=== PATIENT | male | born 1960 | race African-American/Black ===

== ENCOUNTER 2019-11-10 18:47 | Inpatient (IN) | payer OTHER ==
[2019-11-10] MEDS ORDERED: hydrALAZINE 20 MG/ML VIAL SLOW IVP PRN (20:58)
[2019-11-10] MEDS ORDERED: niCARdipine 40MG In NaCl 40 MG/200 ML BAG IVPB SCH (21:15)
[2019-11-10] MEDS ORDERED: [UNRECOGNIZED DRUG - REMARK] FS PRN (21:21)
[2019-11-10] MEDS ORDERED: levETIRAcetam In NaCl (Iso-Os) 1,000 MG in Premix Bag 1 BAG IVPB SCH (22:15)
[2019-11-10 22:38] LABS: Amphetamine Not Detected (NotDetected); Barbiturates Screen Not Detected (NotDetected); Benzodiazepine Screen Not Detected (NotDetected); Cocaine Metabolite Screen Not Detected (NotDetected); Medtox Control Line Valid? VALID (VALID); Medtox Reader # READER 4; Methadone Not Detected (NotDetected); Methamphetamine Not Detected (NotDetected); Opiate Screen Not Detected (NotDetected); Oxycodone Screen Not Detected (NotDetected); Phencyclidine (PCP) Not Detected (NotDetected); THC/Cannabinoid Screen Not Detected (NotDetected); Tricyclic Screen Not Detected (NotDetected)
[2019-11-10] MEDS: Sodium Chloride 0.9% 1,000 ML IV SCH (22:53)
[2019-11-11] MEDS: Acetaminophen 325 MG TAB PO PRN ×4 (01:39→14:31)
--- NOTE | 2019-11-11 02:14 | HP ---
ADDITIONAL DICTATED FOR PHYSICIAN: Stevie Pedro MD CHIEF COMPLAINT: Altered mental status, confusion, upper extremity paresthesias. HISTORY OF PRESENT ILLNESS: Mr. Marquis is a 59-year-old male, who was transferred from [facility] to [facility] in [place] for altered mental status and upper extremity paresthesias. The patient is confused and is a poor historian, so obtaining history was difficult. Per ER report, the patient had a systolic blood pressure into the 190s over 100s and was started on a nicardipine drip. This resulted in improvement to 120s over 70s. The patient has no significant complaints of pain other than a slight headache. He also reports numbness and tingling in the fingers of his left hand. He denies any weakness in his extremities, blurred vision, nausea, vomiting, chest pain, or shortness of breath. He states that he possibly had a fall within the past few days. He is unable to provide details regarding this possible fall; however, states that perhaps he was lightheaded. Medical history is significant for hypertension and diabetes mellitus. The patient states that he takes lisinopril, metformin, and 325 mg aspirin, which he takes for pain. He denies any prior history of IN or CVA/TIA. Labs completed in the ER were within normal limits and the patient was negative for alcohol. The patient had a CT of the brain without contrast that revealed a left-sided intracranial hemorrhage with some extension into the left lateral ventricle and a posterior horn. No hydrocephalus at this time and no signs of crowding within the brain. Incidental findings of right posterior fossa arachnoid cyst with some degree of mass effect in the right cerebellum. CTA of the head with and without contrast was negative for any acute abnormalities. PHYSICAL EXAMINATION: The patient is awake and alert; however, he is confused. GCS is 14. The patient is able to correctly state his name and date of . He knows that he is in the hospital; however, he is unable to name which city he is in. He knows that today is ; however, he incorrectly states that it is November 2009. The patient is able to correctly name and identify the use of a pen. He also correctly states the definition of an island. Pupils are 2 mm and sluggishly reactive. Extraocular movements are intact. No tongue fasciculations. Cranial nerves 2 through 12 are grossly intact. The patient has excellent strength throughout all upper extremity and lower extremity myotomes. No intrinsic hand weakness. Sensation to light touch is intact and equal bilaterally. The patient has good movement of his upper and lower extremities bilaterally. Gait was not assessed. IMPRESSION/DIAGNOSES: 1. Left-sided intracranial hemorrhage with extension into the left lateral ventricle and inferior horn. 2. Right posterior fossa arachnoid cyst. 3. Hypertension. 4. History of diabetes mellitus, on metformin. 5. On 325 mg aspirin as needed for pain. PLAN: I have discussed the patient's case and imaging with Dr. Pedro. Despite the size of the left-sided intracranial hemorrhage and extension into the ventricles, there is no hydrocephalus present at this time, and overall there does not appear to be any significant crowding of the brain. No neurosurgical intervention or EVD placement is indicated at this time. Plan will be to admit patient to CCU for hourly neuro checks and continued monitoring for any neurologic changes. The patient will be n.p.o. Head of bed at 30 degrees. We will hold on aspirin and all blood thinners. We will attempt to manage blood pressure with hydralazine, lisinopril, and nicardipine drip. We have consulted our hospitalist team to help with medical management of blood pressure. Blood pressure parameters will be systolic blood pressure less than 150 and diastolic blood pressure less than 90. Plan will be to obtain repeat CT of the brain without contrast and MRI of the brain with and without contrast tomorrow morning. Should the patient have any neurologic decline overnight, we will get a stat repeat head CT or CT of the brain. The patient was updated with this plan and he voiced his understanding. Please call with any neurologic changes or other concerns. Otherwise, we will see the patient again tomorrow morning. This was a 50-minute initial patient evaluation of which greater than 50% of the time was spent in counseling. The remaining time was spent in review of records, imaging, evaluation of the patient, examination, and formulation of plan. Job ID: [id number]
[2019-11-11] MEDS: niCARdipine 50 MG in Sodium Chloride 0.9% 250 ML 230 ML IV SCH ×2 (02:53→09:03)
[2019-11-11 06:23] LABS: #Basophils 0.1 thou/uL (0.0-0.2); #Eosinphils 0.2 thou/uL (0.0-0.7); #Lymphocytes 1.8 thou/uL (1.20-3.40); #Monocytes 0.7 thou/uL (0.11-0.59); #Neutrophils 7.3 thou/uL (1.40-6.50); %Basophils 0.7 % (0.0-1.0); %Eosinophils 1.7 % (0.0-10.0); %Monocytes 6.5 % (0.0-10.0); %Neutrophils 73.3 % (42.0-75.0); Mean Corpuscular HGB CONC 34.7 g/dL (32.0-36.0); Mean Corpuscular Hemoglobin 31.2 pg (27.0-31.0); Mean Platelet Volume 6.8 fL (7.4-10.4); Platelet Count 250 thou/uL (130-400)
[2019-11-11 06:35] LABS: Anion Gap 12 mmol/L (10-20); BUN (Urea Nitrogen) 10 mg/dL (8.4-25.7); Calc. Creatinine Clearance 151 mL/min (70-130); Calcium 8.7 mg/dL (7.8-10.44); Carbon Dioxide 24 mmol/L (22-29); Chloride 108 mmol/L (98-107); Estimated GFR-MDRD Greater than 90; Glucose 138 mg/dL (70-105); Potassium 3.5 mmol/L (3.5-5.1); Sodium 140 mmol/L (136-145)
--- NOTE | 2019-11-11 06:39 | CT ---
CT OF THE BRAIN WITHOUT CONTRAST: Date: 11/11/19 COMPARISON: 11/10/19. HISTORY: Intracranial hemorrhage. TECHNIQUE: Multiple contiguous axial images were obtained in a CT of the brain without contrast. FINDINGS: There is a stable left occipitoparietal hemorrhage extending into the left lateral ventricles. The la teral ventricles are slightly more prominent. The extent of intraventricular hemorrhage is stable. Th ere is stable atrophy versus encephalomalacia in the right cerebellar hemisphere. No midline shift or downward herniation is seen. The calvarium and overlying soft tissues are unremarkable. The visualized paranasal sinuses and masto id air cells are well aerated. IMPRESSION: Stable intraventricular hemorrhage with possible slight increased prominence of the lateral ventricle s, suggesting developing hydrocephalus. POS: [facility]
[2019-11-11] MEDS ORDERED: HumaLOG 300 UNITS/3 ML VIAL SC PRN ×2 (10:26)
[2019-11-11] MEDS ORDERED: Dextrose 50% Abboject 50 ML SYRINGE SLOW IVP PRN (10:26)
[2019-11-11] MEDS ORDERED: Dextrose 5% in Water 1,000 ML IV PRN (10:26)
[2019-11-11] MEDS: Sodium Chloride 0.9% 1,000 ML IV SCH ×2 (10:27→17:37)
[2019-11-11] MEDS ORDERED: Amlodipine 5 MG TAB PO SCH (10:30)
[2019-11-11] MEDS: Labetalol HCl 100 MG/20 ML VIAL SLOW IVP PRN ×5 (11:50→23:18)
--- NOTE | 2019-11-11 12:00 | MRI ---
MRI BRAIN WITH AND WITHOUT CONTRAST: INDICATIONS: Intracerebral hematoma. Altered mental status. CORRELATION: CTA of head and CT brain from 11/10/2019 and 11/11/2019. FINDINGS: The intraparenchymal hematoma in the left parietal lobe is again noted. It measures 5.6 cm in AP dime nsion in the axial plane and is not significantly changed in size when compared to the CT of 11/11/20 19 performed at 4:45 a.m. The mild hydrocephalus is again noted. The large arachnoid cyst in the right posterior fossa is again noted, unchanged in appearance. On post contrast images there is a nidus of vascular enhancement within the mid portion of this hemat waqas. The vessels appear to arise from branches from the left anterior cerebral artery. There is also suggestion of a draining vein which drains to the superior sagittal sinus as seen on sagittal images. No other abnormal enhancement. IMPRESSION: 1. Left parietal lobe hematoma again noted, unchanged. Mild hydrocephalus is stable from CT earlier t shiv. 2. Post contrast MR images show enhancing vascular structures within the mid portion of this hematoma . These appear to represent arteries arising from the left anterior cerebral artery. There is suggest ion of a small draining venous structure. The small nidus of enhancement in the mid portion of this h ematoma is concerning for a small arteriovenous malformation, which may explain the hemorrhage. A fol low-up catheter angiogram is recommended for confirmation. Review of the CTA is made. These enhancing vascular structures from the hematoma are not apparent on the CTA, probably obscured by the density of the hematoma. POS: [facility]
--- NOTE | 2019-11-11 14:11 | PRG ---
DATE OF SERVICE: 11/11/2019 This is a 30-minute initial visit note, in which 30 minutes was spent reviewing the imaging record, evaluation, examination of the patient, and formulation of plan. Greater than 50% time was spent in counseling on Pablo Marquis. I reviewed the notes of my colleague, Nitza Lopez PA-C, and agreed with its content. SUBJECTIVE: Mr. Marquis is a 59-year-old man with hypertension. He presented with a systolic blood pressure over 200 last night and a GCS of 14 consistent with while he was alert, he was confused. He was admitted overnight. I should note he takes aspirin on occasion and has a history of diabetes and hypertension. A head CT demonstrated a large left parietal and david radiata hemorrhage. There are ventricular prominence and a large posterior fossa arachnoid cyst with a [id number] mass effect on the underlying cerebellum and brainstem; however, the fourth ventricle is open. He has again mild ventriculomegaly. We have no further imaging for comparison. CTA of the brain was negative for arterial or venous abnormality. He was admitted to the ICU. His blood pressure this morning is 137/80. His head CT is stable in my opinion. He has intraventricular blood. An MRI was performed today. There is a concern of perhaps a small AVM in the center of this lesion with potentially feeders from the distal anterior cerebral artery. The posterior fossa arachnoid cyst is an arachnoid cyst and in my opinion is likely incidental. In review of the CTA, I do not see any clear evidence of a feeding artery or draining vein, although we do need a cerebral angiogram. I do not see any clear evidence for transependymal flow. His brain does not appear to be overly tight. He does have a small area of diffusion restriction in his left basis rosa m. This is also T2 hyperintense. It is unclear what to make of this. It could be a small infarct. OBJECTIVE: On exam, he is drowsy. He has right pronator drift and moderate right upper extremity weakness. He moves his left upper extremity and bilateral lower extremities without deficit. He is confused. DISCUSSION AND PLAN: What we would like to do is allow him to be monitored over the weekend. The arachnoid cyst is incidental. I am concerned about a potential vascular abnormality inside the hematoma led to this bleed coupled with hypertension. As such, I would like to allow the hematoma to liquify and repeat a CTA early next week and to see if the hematoma once it has liquified if we can identify the underlying lesion, possible AVM. At this point, there is no need for procession to the operating room. I would like to get his blood pressure under better control. I do not think we need to place an external ventricular drain. Again, the arachnoid cyst is a congenital lesion. In regard to the hyperintensity in his rosa m on the left side and potential for left acute small pontine infarct, I would recommend we continue to monitor this and abstain from aspirin. DIAGNOSES: 1. Left parieto-occipital hematoma, possibly underlying arteriovenous malformation, CTA negative. 2. Hypertension. Job ID: [id number]
[2019-11-11] MEDS ORDERED: Lisinopril 10 MG TAB PO SCH (14:45)
[2019-11-11] MEDS: HYDROcodone/Acetaminophen 5/325 mg Tablet PO PRN ×2 (15:53→20:28)
--- NOTE | 2019-11-11 16:57 | CON ---
DATE OF CONSULTATION: PRIMARY CARE PHYSICIAN: The patient's primary care physician is out of town. He goes to the [facility]. CHIEF COMPLAINT: Altered mental status. REASON FOR ADMISSION: Intracranial hemorrhage. REASON FOR CONSULTATION: For the management of hypertension and diabetes mellitus. HISTORY OF PRESENT ILLNESS: Mr. Marquis is a pleasant 59-year-old gentleman, who was sent over from the [facility] due to acute intracranial hemorrhage. 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 He called his , who noticed that he was altered, on the phone and EMS was called. He was brought to the [facility], where he was found to have a large intracranial hemorrhage on the left side with some extension into the lateral ventricles and posterior horn. There was no evidence of hydrocephalus. No signs of crowding within the brain and he was admitted to the Neurosurgery Service. It was felt that he is currently not a surgical candidate and we have been asked to dry cleaner helper with medical management. The goal would be for his blood pressure to be below 150/90. The patient is currently awake and alert. He is oriented. He notes just some numbness in his fingertips, but he says this has been going on prior to the incident, but otherwise no complaints other than he says he still feels a bit confused. REVIEW OF SYSTEMS: All systems were reviewed and are negative except for that mentioned in the history of present illness. PAST MEDICAL HISTORY: Significant for diabetes mellitus and hypertension. PAST SURGICAL HISTORY: Negative. ALLERGIES: NO KNOWN DRUG ALLERGIES. SOCIAL HISTORY: He is , has 3 children. He is a nonsmoker, but occasionally drinks on the weekends. FAMILY HISTORY: No history of any heritable diseases. MEDICATIONS: Prior to admission included lisinopril, he is unclear of the dose, and metformin, he believes was 500 mg daily. PHYSICAL EXAMINATION: GENERAL: He is alert and oriented to person, place, and time. He is well developed and well nourished. VITAL SIGNS: Currently, blood pressure 132/80, heart rate in the 80s, respiratory rate of 16, and temperature is afebrile. HEENT: Pupils are equal, round, and reactive to light. Extraocular muscles are intact. His sclerae are anicteric. Throat, no erythema, no exudates. Uvula is midline. NECK: No adenopathy. No bruits. LUNGS: Clear to auscultation. There is no wheezing. No rales. No rhonchi. CARDIOVASCULAR: He has a normal S1-S2. There is no S3 or S4. No murmurs, clicks, or rubs. ABDOMEN: Soft, nontender, and nondistended. Positive for bowel sounds. No rebound. No guarding. No organomegaly. EXTREMITIES: There is no clubbing or cyanosis. No edema. No calf tenderness. No joint effusions. NEUROLOGIC: His cranial nerves 2 through 12 are intact. Muscle strength is 5/5 in both his upper and lower extremities. SKIN AND INTEGUMENT: No skin changes. No rash. LABORATORY DATA: White blood cell count is 10, hemoglobin 14, hematocrit is 40.5, and platelet count is 250. Sodium 140, potassium 3.5, chloride is 108, CO2 is 24, BUN of 10, creatinine 0.8, and glucose is 138. Urine drug screen is negative. IMAGING STUDIES: He had a CT scan of the brain. As previously mentioned, there was a hemorrhage in the left occipitoparietal region extending into the lateral ventricles on the left. No evidence of hydrocephalus. No midline shift or downward herniation. ASSESSMENT AND PLAN: Mr. Marquis is a pleasant 59-year-old gentleman, who suffered an intracranial hemorrhage. He is currently neurologically intact. The plan is for him to go for MRI today. 1. Hypertension. We will continue the Cardene drip. Restart lisinopril and likely add a low dose of amlodipine. Continue the labetalol and hydralazine as needed. 2. Diabetes mellitus. We will place him on a low-dose long-acting insulin for now. The MRI will be done with contrast, and therefore, we will restart metformin in 2 days, likely on Thursday. 3. The patient has been placed on seizure precaution and we will keep a close eye on his electrolytes as well. Job ID: [id number]
[2019-11-11] MEDS: Ondansetron PF 4 MG/2 ML Vial IVP PRN (19:39)
[2019-11-11] MEDS: hydrALAZINE 20 MG/ML VIAL SLOW IVP PRN (22:36)
[2019-11-12] MEDS: hydrALAZINE 20 MG/ML VIAL SLOW IVP PRN (00:42)
[2019-11-12] MEDS: HYDROcodone/Acetaminophen 5/325 mg Tablet PO PRN ×3 (00:46→08:26)
--- NOTE | 2019-11-12 01:58 | CON ---
DATE OF CONSULTATION: HISTORY OF PRESENT ILLNESS: Pablo Marquis is a pleasant 59-year-old male. He is a little confused. His is at the bedside. He presented with a parenchymal brain hemorrhage. We were consulted because of his presence in the Critical Care Unit. His family says he has not fallen. 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 He presented with complaints of dizziness and headache apparently. PAST MEDICAL HISTORY: Remarkable for diabetes and hypertension. ALLERGIES: HE HAS NO REPORTED ALLERGIES. SOCIAL HISTORY: He is a nonsmoker. He occasionally drinks. He does not use drugs. He is and he has three children. His is at bedside. FAMILY HISTORY: Negative for lung disease in early age. MEDICATIONS: Prior to admission, he was on lisinopril and metformin. REVIEW OF SYSTEMS: Ten points otherwise negative. Again, he is confabulating a little bit, sitting at the bedside. He is in no distress. PHYSICAL EXAMINATION: VITAL SIGNS: Heart rate 75, respiratory rates in the 20s, blood pressure 115/62 , oximetry is 98%. HEENT: Pupils are equal. Sclerae are anicteric. NECK: Supple. No lymphadenopathy. LUNGS: Clear. HEART: Regular rhythm. S1, S2 are normal. ABDOMEN: Soft and nontender. EXTREMITIES: Without clubbing, cyanosis, or edema. LABORATORY DATA: White count 10.0, hemoglobin 14, platelets 250. Electrolytes are normal. Glucose 138. Drug screen was negative. IMPRESSION: Parenchymal brain hemorrhage in the left parietal area. Appears to be protecting his airway and in no distress. We will follow the other physicians caring for him. 70 minute consult with 50% of time on unit coordinating care Job ID: [id number] [facility]
[2019-11-12] MEDS: Labetalol HCl 100 MG/20 ML VIAL SLOW IVP PRN (02:05)
[2019-11-12] MEDS: Ondansetron PF 4 MG/2 ML Vial IVP PRN (02:37)
[2019-11-12] MEDS: Sodium Chloride 0.9% 1,000 ML IV SCH ×2 (08:27→23:35)
[2019-11-12] MEDS ORDERED: Lisinopril 10 MG TAB PO SCH (09:00)
[2019-11-12] MEDS ORDERED: Amlodipine 5 MG TAB PO SCH (09:00)
--- NOTE | 2019-11-12 09:15 | PRG ---
DATE OF SERVICE: 11/12/2019 I saw Pablo Marquis on our rounds today. He is resting in his ICU room as I entered. He has complained of headache to his nurse. He and I talked about some visual difficulty and slowness on the right side. Overnight, I do not see any fevers recorded among the electronic vitals. Blood pressures have been in the 120s recently, but that was after Cardene drip was restarted. On examination, there is a field cut on the right. There may be some mild neglect of the right, but there seems to be good strength on the right side of the body. CT imaging showed the parieto-occipital hemorrhage extending to the ventricular surface and up within a few millimeters of the cortex of the brain. A CT angiogram was equivocal for any vascular anomaly in the area. An MRI scan did not show significant flow voids. Mr. Marquis is neurologically stable. He is back on his Cardene drip, but if they can wean off that and have his blood pressure under reasonable control, then he can move to the floor. If not, we will keep in the in the ICU another day. We can adjust his pain medication to help control with the headache, which may make his blood pressure easier to control as well. (15 minutes total time in the ICU, at bedside, and reviewing imaging). Job ID: [id number]
[2019-11-12] MEDS: niCARdipine 50 MG in Sodium Chloride 0.9% 250 ML 230 ML IV SCH ×3 (09:30→20:05)
[2019-11-12] MEDS ORDERED: Lisinopril 20 MG TAB PO SCH (10:30)
[2019-11-12] MEDS ORDERED: metFORMIN 500 MG TAB PO SCH (10:30)
--- NOTE | 2019-11-12 14:05 | PRG ---
DATE OF SERVICE: 11/12/2019 SUBJECTIVE: Pablo Marquis is still confused. OBJECTIVE: VITAL SIGNS: Heart rate in the 70s, blood pressure 129/70, respiratory rate is in the teens, and oximetry is 95%. LUNGS: Clear. HEART: Regular rate and rhythm. ABDOMEN: Soft. EXTREMITIES: Without edema. LABORATORY DATA: There is no new lab today. IMPRESSION: Status post parenchymal brain hemorrhage, clinically stable. Blood pressure still under Cardene control. His hypertensive medications have been adjusted. Job ID: [id number]
--- NOTE | 2019-11-12 14:58 | PDOC.HOSPP ---
- Subjective Encounter Date: 11/12/19 Encounter Time: 09:30 Subjective: awake, eating yogurt, moves all extremities no nausea or headache follows verbal stimuli - Objective Vital Signs & Weight: Vital Signs (12 hours) Temp Pulse BP Pulse Ox 11/12/19 12:00 97.6 F 11/12/19 10:34 126/62 11/12/19 08:26 126/57 L 11/12/19 08:25 73 126/57 L 11/12/19 08:00 98.5 F 95 11/12/19 04:00 97.7 F Weight Weight 236 lb 8.896 oz Most Recent Monitor Data Heart Rate from ECG 65 NIBP 137/64 NIBP BP-Mean 88 Respiration from ECG 20 SpO2 98 I&O: 11/11/19 11/12/19 11/13/19 06:59 06:59 06:59 Intake Total 627 2550.9 100 Output Total 750 2060 200 Balance -123 490.9 -100 Result Diagrams: 11/11/19 05:51 11/11/19 05:51 Additional Labs: Accuchecks 11/12/19 11/12/19 11/11/19 09:17 06:19 21:00 POC Glucose 122 H 121 H 113 H Hospitalist ROS - Medication Medications: Active Medications Generic Name Dose Route Start Last Admin Trade Name Freq PRN Reason Stop Dose Admin Acetaminophen 650 mg 11/10/19 20:44 11/11/19 14:31 Tylenol PO 650 mg Q4H PRN Administration Headache/Fever/Mild Pain (1-3) Hydrocodone Bitart/Acetaminophen 1 tab 11/11/19 15:22 11/12/19 08:26 [place] 5/325 PO 1 tab Q4H PRN Administration Headache Hydralazine HCl 10 mg 11/11/19 17:10 11/12/19 00:42 Apresoline SLOW IVP 10 mg Q15MIN PRN Administration Sbp Greater Than 140 Sodium Chloride 1,000 mls @ 75 mls/hr 11/10/19 20:45 11/12/19 08:27 Normal Saline 0.9% IV 1,000 mls .[id number] MITCHELL Administration Levetiracetam 500 mg/ Device 100 mls @ 200 mls/hr 11/11/19 09:00 11/12/19 08: 33 IVPB 100 mls BID MITCHELL Administration Nicardipine HCl 50 mg/ Sodium 250 mls @ 0 mls/hr 11/11/19 17:10 11/12/19 14: 21 Chloride IV 250 mls INF MITCHELL Administration Protocol As Directed Labetalol HCl 10 mg 11/11/19 17:10 11/12/19 02:05 Normodyne SLOW IVP 2 ml Q15MIN PRN Administration SBP greater than 140 Ondansetron HCl 4 mg 11/10/19 20:44 11/12/19 02:37 Zofran IVP 4 mg Q6H PRN Administration Nausea/Vomiting Sodium Chloride 10 ml 11/10/19 20:44 11/11/19 23:19 Flush - Normal Saline IVF 10 ml PRN PRN Administration Saline Flush - Exam General Appearance: awake alert Eye: PERRL, anicteric sclera ENT: no oropharyngeal lesions, moist mucosa Neck: supple, no JVD Heart: RRR, no murmur Respiratory: no wheezes, no rales, no ronchi Gastrointestinal: soft, non-tender, non-distended, normal bowel sounds Extremities: no cyanosis, no edema Neurological: no focal deficits, vision deficit Musculoskeletal: normal tone, no muscle wasting Hosp A/P (1) ICH (intracerebral hemorrhage) Code(s): I61.9 - NONTRAUMATIC INTRACEREBRAL HEMORRHAGE, UNSPECIFIED Status: Acute Qualifiers: Intracerebral hemorrhage etiology: nontraumatic Cerebral hemorrhage location: cerebral hemisphere, cortical portion Laterality: left Qualified Code(s): I61.1 - Nontraumatic intracerebral hemorrhage in hemisphere, cortical Plan: with intraventricular extension (2) Hypertensive emergency Code(s): I16.1 - HYPERTENSIVE EMERGENCY Status: Acute (3) Obesity (BMI 30.0-34.9) Code(s): E66.9 - OBESITY, UNSPECIFIED Status: Chronic (4) DM type 2 (diabetes mellitus, type 2) Status: Chronic Qualifiers: Diabetes mellitus intermediate insulin use: without intermediate use - Plan add lopressor 50mg bid, procardial xl 60mg may taper and dc cardene for sbp around 140's lipid profile in am continue metformin, prophylactic keppra parieto-occipital hemorrhage with intraventricular extn has large posterior fossa arachnoid cyst compressing brain stem structures, mgmt per Nsx hemostable oral solid diet, oob to chair and mobilize as tolerated when off cardene echo for lv function, ?lvh
[2019-11-12] MEDS ORDERED: NIFEdipine XL 60 MG TAB PO SCH (16:15)
[2019-11-12] MEDS ORDERED: Metoprolol Tartrate 50 MG TAB PO SCH ×2 (16:15→21:00)
[2019-11-12] MEDS: HYDROcodone/Acetaminophen 10/325 mg Tablet PO PRN (16:28)
[2019-11-13] MEDS: niCARdipine 50 MG in Sodium Chloride 0.9% 250 ML 230 ML IV SCH ×2 (00:50→05:58)
[2019-11-13 04:06] LABS: Anion Gap 15 mmol/L (10-20); BUN (Urea Nitrogen) 13 mg/dL (8.4-25.7); Calc. Creatinine Clearance 153 mL/min (70-130); Calcium 8.5 mg/dL (7.8-10.44); Carbon Dioxide 17 mmol/L (22-29); Cardiac Risk 4.3 (Less than 4.5); Chloride 109 mmol/L (98-107); Cholesterol 209 mg/dl (< 200 Desired); Estimated GFR-MDRD Greater than 90; Glucose 120 mg/dL (70-105); HDL Cholesterol 49 mg/dL (>60 Neg Risk); LDL Cholesterol, Calculated 140 mg/dL; Potassium 3.6 mmol/L (3.5-5.1); Sodium 137 mmol/L (136-145); Triglycerides 102 mg/dL (Less than 150)
[2019-11-13] MEDS: Metoprolol Tartrate 50 MG TAB PO SCH ×2 (04:19→15:35)
[2019-11-13 05:10] LABS: Eosinophils 2 % (0-10); Hemoglobin 13.7 g/dL (14.0-18.0); Lymphocytes 17 % (21-51); MDiff Complete? YES; Mean Corpuscular HGB CONC 33.4 g/dL (32.0-36.0); Mean Corpuscular Hemoglobin 30.8 pg (27.0-31.0); Mean Corpuscular Volume 92.1 fL (78.0-98.0); Monocytes 5 % (0-10); Neutrophil 75 % (42-75); Platelet Count 232 thou/uL (130-400); Platelet Morphology Comment Appears Adequate; RBC Distribution Width 11.9 % (11.5-14.5); Red Blood Cell (RBC) Count 4.45 mill/uL (4.70-6.10); White Blood Cell (WBC) Count 12.6 thou/uL (4.8-10.8)
[2019-11-13] MEDS: metFORMIN 500 MG TAB PO SCH (08:07)
[2019-11-13] MEDS: NIFEdipine XL 30 MG TAB PO SCH (08:07)
[2019-11-13] MEDS: Ondansetron PF 4 MG/2 ML Vial IVP PRN (08:07)
[2019-11-13] MEDS: Lisinopril 10 MG TAB PO SCH ×2 (08:08→21:01)
[2019-11-13] MEDS ORDERED: NIFEdipine XL 60 MG TAB PO SCH (09:00)
[2019-11-13] MEDS ORDERED: Lisinopril 20 MG TAB PO SCH (09:00)
[2019-11-13] MEDS ORDERED: Dexamethasone 4 mg/ml Vial SLOW IVP SCH (09:00)
[2019-11-13] MEDS: Pantoprazole 40 MG VIAL IVP SCH ×2 (09:35→21:01)
--- NOTE | 2019-11-13 11:14 | PRG ---
DATE OF SERVICE: 11/13/2019 I saw Mr. Marquis in the ICU this morning. He complaints of some headache and nausea this morning. He remains on a Cardene drip. I see a temperature of 99.0 degrees Fahrenheit recorded among his electronic vitals and that is the highest over the last 24 hours. His blood pressures have been in the 110s to 120s. On examination, Mr. Marquis opens his eyes. He answers questions. He moves all 4 extremities. He is little bit slower on the right than the left. The sodium today is 137. The white blood cell count is 12.6. I discussed with Mr. Marquis's care with the nurse. We are going to add one dose of Decadron to see if it helps with the nausea and headache. Also, add Protonix twice a day for GI prophylaxis. We will schedule the Zofran for the next 24 hours. Hopefully, these adjustments help him keep his medicine down that he can take his oral antihypertensives and wean off the Cardene drip. (15 minutes spent on the ICU, reviewing imaging and the results and managing care). Job ID: [id number]
[2019-11-13] MEDS: Ondansetron PF 4 MG/2 ML Vial SLOW IVP SCH ×3 (12:10→23:52)
[2019-11-13] MEDS: Sodium Chloride 0.9% 1,000 ML IV SCH (12:14)
--- NOTE | 2019-11-13 13:23 | PRG ---
DATE OF SERVICE: 11/13/2019 SUBJECTIVE: Pablo Marquis has no new complaints. He has been mildly nauseated intermittently. OBJECTIVE: VITAL SIGNS: He is afebrile. Heart rate in the 60s, blood pressure 126/62, respiratory rate is 19. LUNGS: Clear. HEART: Regular rhythm. ABDOMEN: Soft and nontender. EXTREMITIES: Without edema. LABORATORY DATA: White count 12.6, hemoglobin 13.7, platelets 232. Sodium 137, potassium 3.6, chloride 109, bicarb 17, BUN 13, creatinine 0.78. IMPRESSION: Status post brain hemorrhage. Decadron was added for nausea and headache. Job ID: [id number]
--- NOTE | 2019-11-13 13:31 | PDOC.HOSPP ---
- Subjective Encounter Date: 11/13/19 Encounter Time: 08:45 Subjective: awake, getting his echo done now no sob or specific weakness was nauseous early this am, says he feels better now - Objective Vital Signs & Weight: Vital Signs (12 hours) Temp Pulse BP BP BP BP Pulse Ox 11/13/19 12:36 123/62 122/64 133/70 11/13/19 12:00 98.1 F 11/13/19 08:08 118/57 L 11/13/19 08:07 77 118/57 L 11/13/19 08:00 96 11/13/19 07:00 97.9 F 11/13/19 04:00 98.4 F Weight Weight 245 lb 13.047 oz Most Recent Monitor Data Heart Rate from ECG 61 NIBP 125/66 NIBP BP-Mean 85 Respiration from ECG 19 SpO2 96 I&O: 11/12/19 11/13/19 11/14/19 06:59 06:59 06:59 Intake Total 2550.9 3107 0 Output Total 2060 625 0 Balance 490.9 2482 0 Result Diagrams: 11/13/19 03:34 11/13/19 03:34 Additional Labs: Accuchecks 11/13/19 11/13/19 11/12/19 12:15 06:11 21:18 POC Glucose 121 H 133 H 123 H 11/12/19 18:23 POC Glucose 117 H Hospitalist ROS - Medication Medications: Active Medications Generic Name Dose Route Start Last Admin Trade Name Jaredq PRN Reason Stop Dose Admin Acetaminophen 650 mg 11/10/19 20:44 11/11/19 14:31 Tylenol PO 650 mg Q4H PRN Administration Headache/Fever/Mild Pain (1-3) Hydrocodone Bitart/Acetaminophen 1 tab 11/11/19 15:22 11/12/19 08:26 [place] 5/325 PO 1 tab Q4H PRN Administration Headache Hydrocodone Bitart/Acetaminophen 1 tab 11/12/19 09:16 11/12/19 16:28 [place] 10/325 PO 1 tab Q4H PRN Administration Moderate Pain (4-6) Hydralazine HCl 10 mg 11/11/19 17:10 11/12/19 00:42 Apresoline SLOW IVP 10 mg Q15MIN PRN Administration Sbp Greater Than 140 Sodium Chloride 1,000 mls @ 75 mls/hr 11/10/19 20:45 11/13/19 12:14 Normal Saline 0.9% IV 1,000 mls .[id number] MITCHELL Administration Levetiracetam 500 mg/ Device 100 mls @ 200 mls/hr 11/11/19 09:00 11/13/19 08: 08 IVPB 100 mls BID MITCHELL Administration Nicardipine HCl 50 mg/ Sodium 250 mls @ 0 mls/hr 11/11/19 17:10 11/13/19 05: 58 Chloride IV 250 mls INF MITCHELL Administration Protocol As Directed Labetalol HCl 10 mg 11/11/19 17:10 11/12/19 02:05 Normodyne SLOW IVP 2 ml Q15MIN PRN Administration SBP greater than 140 Lisinopril 10 mg 11/13/19 09:00 11/13/19 08:08 Zestril PO 10 mg BID MITCHELL Administration Metformin HCl 500 mg 11/13/19 08:00 11/13/19 08:07 Glucophage PO 500 mg QAM-WM MITCHELL Administration Metoprolol Tartrate 50 mg 11/13/19 04:00 11/13/19 04:19 Lopressor PO 50 mg 0400,1600 MITCHELL Administration Nifedipine 30 mg 11/13/19 09:00 11/13/19 08:07 Procardia Xl PO 30 mg DAILY MITCHELL Administration Ondansetron HCl 4 mg 11/10/19 20:44 11/13/19 08:07 Zofran IVP 4 mg Q6H PRN Administration Nausea/Vomiting Ondansetron HCl 4 mg 11/13/19 12:00 11/13/19 12:10 Zofran SLOW IVP 11/14/19 06:01 4 mg Q6HR MITCHELL Administration Pantoprazole Sodium 40 mg 11/13/19 09:00 11/13/19 09:35 Protonix IVP 40 mg BID MITCHELL Administration Sodium Chloride 10 ml 11/10/19 20:44 11/11/19 23:19 Flush - Normal Saline IVF 10 ml PRN PRN Administration Saline Flush - Exam General Appearance: awake alert Eye: PERRL, anicteric sclera ENT: no oropharyngeal lesions, moist mucosa Neck: supple, no JVD Heart: RRR, no murmur Respiratory: no wheezes, no rales Gastrointestinal: soft, non-tender, non-distended, normal bowel sounds Extremities: no cyanosis, no edema Neurological: cranial nerve grossly intact Psychiatric: normal affect, A&O x 3 Hosp A/P (1) ICH (intracerebral hemorrhage) Code(s): I61.9 - NONTRAUMATIC INTRACEREBRAL HEMORRHAGE, UNSPECIFIED Status: Acute Qualifiers: Intracerebral hemorrhage etiology: nontraumatic Cerebral hemorrhage location: cerebral hemisphere, cortical portion Laterality: left Qualified Code(s): I61.1 - Nontraumatic intracerebral hemorrhage in hemisphere, cortical (2) Hypertensive emergency Code(s): I16.1 - HYPERTENSIVE EMERGENCY Status: Resolved (3) Obesity (BMI 30.0-34.9) Code(s): E66.9 - OBESITY, UNSPECIFIED Status: Chronic (4) DM type 2 (diabetes mellitus, type 2) Status: Chronic Qualifiers: Diabetes mellitus terminal operator insulin use: without terminal operator use - Plan on lopressor 50mg bid, procardial xl 30mg daily may taper and dc cardene for sbp around 140's continue metformin, prophylactic keppra, lipitor parieto-occipital hemorrhage with intraventricular extn has large posterior fossa arachnoid cyst compressing brain stem structures, mgmt per Nsx hemostable oral solid diet, oob to chair and mobilize as tolerated when off cardene echo for lv function, ?lvh
[2019-11-13] MEDS: Atorvastatin Calcium 40 MG TAB PO SCH (21:00)
[2019-11-14] MEDS: Sodium Chloride 0.9% 1,000 ML IV SCH ×2 (02:08→17:14)
[2019-11-14 04:22] LABS: Hemoglobin 12.5 g/dL (14.0-18.0); Lymphocytes 10 % (21-51); MDiff Complete? YES; Mean Corpuscular HGB CONC 34.4 g/dL (32.0-36.0); Mean Corpuscular Hemoglobin 31.1 pg (27.0-31.0); Mean Corpuscular Volume 90.3 fL (78.0-98.0); Mean Platelet Volume 6.9 fL (7.4-10.4); Monocytes 3 % (0-10); Neutrophil 87 % (42-75); Platelet Count 221 thou/uL (130-400); RBC Distribution Width 11.6 % (11.5-14.5); Red Blood Cell (RBC) Count 4.02 mill/uL (4.70-6.10); White Blood Cell (WBC) Count 13.9 thou/uL (4.8-10.8)
[2019-11-14 04:23] LABS: Anion Gap 10 mmol/L (10-20); BUN (Urea Nitrogen) 17 mg/dL (8.4-25.7); Calc. Creatinine Clearance 155 mL/min (70-130); Calcium 8.6 mg/dL (7.8-10.44); Carbon Dioxide 21 mmol/L (22-29); Chloride 110 mmol/L (98-107); Estimated GFR-MDRD Greater than 90; Glucose 137 mg/dL (70-105); Potassium 3.8 mmol/L (3.5-5.1); Sodium 137 mmol/L (136-145)
[2019-11-14] MEDS: Metoprolol Tartrate 50 MG TAB PO SCH ×3 (04:55→17:48)
[2019-11-14] MEDS: Ondansetron PF 4 MG/2 ML Vial SLOW IVP SCH (04:55)
--- NOTE | 2019-11-14 08:19 | CT ---
PRELIMINARY REPORT/[facility]/EMERGENCY AFTER HOURS PROCEDURE: EXAMINATION CTA Head With Intravenous Contrast. CT Head without Contrast. HISTORY CONCERN FOR AVM TECHNIQUE Axial CTA images of the head with intravenous contrast. MIP reconstructed images were created and rev iewed. Axial computed tomography images of the head/brain performed without intravenous contrast. CONTRAST With; ISOVIEW 370 MG, 100ML COMPARISON CT - CT BRAIN WO CON - 11/11/2019 04:44 AM [place] [facility] FINDINGS: CT HEAD: BRAIN: Large intraparenchymal hemorrhage within the left parieto-occipital lobe with surrounding edema and m ass-effect upon the adjacent sulci. Small amounts of intraventricular extension into the posterior ho rn of the left lateral ventricle. Hemorrhage is similar in size and appearance compared to prior CT d ated 11/11/19. Increased amount of hemorrhage layering within the posterior horn of the left lateral ventricle. Large CSF density lesion within the right posterior fossa causing mass-effect upon the right cerebell um which likely represents a large arachnoid cyst and is unchanged in appearance compared to prior. VENTRICLES: Prominence of the lateral ventricles, which are similar in appearance compared to prior. ORBITS: The orbits are unremarkable. SINUSES AND MASTOIDS: The paranasal sinuses and mastoid air cells are clear CTA HEAD: INTERNAL CAROTID ARTERIES The intracranial ICAs are patent with no significant stenosis. No occlusion. No aneurysm. ANTERIOR CEREBRAL ARTERIES No significant stenosis. No occlusion. No aneurysm. MIDDLE CEREBRAL ARTERIES No significant stenosis. No occlusion. No aneurysm. POSTERIOR CEREBRAL ARTERIES No significant stenosis. No occlusion. No aneurysm. BASILAR ARTERY No significant stenosis. No occlusion. No aneurysm. VERTEBRAL ARTERIES No significant stenosis. No occlusion. No aneurysm. OTHER: SOFT TISSUES: No acute finding. No masses or lymphadenopathy. BONES: No acute osseous abnormality. IMPRESSION: 1. Large intraparenchymal hemorrhage within the left parieto-occipital lobe with surrounding edema an d mass-effect upon the adjacent sulci. Small amounts of intraventricular extension into the posterior horn of the left lateral ventricle. Hemorrhage is similar in size and appearance compared to prior C T dated 11/11/19. 2. Increased amount of hemorrhage layering within the posterior horn of the left lateral ventricle. 3. Prominence of the lateral ventricles, which are similar in appearance compared to prior, and suspi cious for mild hydrocephalus. 4. Unremarkable CTA of the head. ELECTRONICALLY SIGNED BY: Cindy Cohen MD Nov 14, 2019 5:37:07 AM [place] [facility] This report is intended for review by the ordering physician only, in accordance of law. If you recei ve this report in error, please call [facility] at [phone]. FINAL REPORT EMERGENCY AFTER HOURS CTA HEAD WITH AND WITHOUT CONTRAST: Date: 11/14/19 Time: 0427 hours INDICATION: Intracranial hemorrhage. Patient has had prior CTA head on 11/10/19. The noncontrast CT head today again shows the intraparenchymal hematoma. There is a linear vascular m arking within this hematoma which may represent a draining venous structure. The previous MRI of the brain described enhancement within the mid portion of this hematoma suspicious for a small AVM nidus. This is not appreciated on CTA and a catheter angiogram is recommended as described on the MRI of . I am in agreement with the preliminary report. POS: [facility]
[2019-11-14] MEDS: Lisinopril 10 MG TAB PO SCH ×2 (08:38→20:52)
[2019-11-14] MEDS: metFORMIN 500 MG TAB PO SCH (08:38)
[2019-11-14] MEDS: Pantoprazole 40 MG VIAL IVP SCH ×2 (08:39→20:53)
[2019-11-14] MEDS: NIFEdipine XL 30 MG TAB PO SCH (08:39)
--- NOTE | 2019-11-14 11:10 | ULT ---
BILATERAL LOWER EXTREMITY VENOUS DUPLEX EXAM: Date: 11/14/19 Deep veins of both lower extremities evaluated with ultrasound and Doppler, with color Doppler, spect ral analysis, and compression. INDICATION: Immobilization. Left lower extremity pain and edema. FINDINGS: Deep veins of both lower extremities show normal blood flow and compression. No evidence of deep veno us thrombosis. IMPRESSION: No evidence of lower extremity deep venous thrombosis. POS: REJI
[2019-11-14] MEDS ORDERED: Haloperidol Lactate 5 MG/ML VIAL ONE (11:42)
--- NOTE | 2019-11-14 11:51 | PDOC.HOSPP ---
- Subjective Encounter Date: 11/14/19 Encounter Time: 10:15 Subjective: awake, calm now got agitated this am per staff follows verbal stimuli is moving all extremities - Objective Vital Signs & Weight: Vital Signs (12 hours) Temp Pulse Pulse Pulse BP BP BP 11/14/19 08:56 110 H 97 166/82 H 141/75 H 11/14/19 08:39 63 155/79 H 11/14/19 08:38 155/79 H 11/14/19 07:52 11/14/19 04:00 98.3 F 11/14/19 00:00 98.5 F Pulse Ox 11/14/19 08:56 11/14/19 08:39 11/14/19 08:38 11/14/19 07:52 100 11/14/19 04:00 11/14/19 00:00 Weight Weight 243 lb 9.773 oz Most Recent Monitor Data Heart Rate from ECG 64 NIBP 146/82 NIBP BP-Mean 103 Respiration from ECG 25 SpO2 94 I&O: 11/13/19 11/14/19 11/15/19 06:59 06:59 06:59 Intake Total 3107 3309 560 Output Total 625 1200 301 Balance 2482 2109 259 Result Diagrams: 11/14/19 03:38 11/14/19 03:38 Additional Labs: Accuchecks 11/14/19 11/14/19 11/13/19 11:35 06:19 21:44 POC Glucose 112 H 125 H 146 H 11/13/19 11/13/19 15:40 12:15 POC Glucose 199 H 121 H Hospitalist ROS - Medication Medications: Active Medications Generic Name Dose Route Start Last Admin Trade Name Freq PRN Reason Stop Dose Admin Acetaminophen 650 mg 11/10/19 20:44 11/11/19 14:31 Tylenol PO 650 mg Q4H PRN Administration Headache/Fever/Mild Pain (1-3) Hydrocodone Bitart/Acetaminophen 1 tab 11/11/19 15:22 11/12/19 08:26 [place] 5/325 PO 1 tab Q4H PRN Administration Headache Hydrocodone Bitart/Acetaminophen 1 tab 11/12/19 09:16 11/12/19 16:28 [place] 10/325 PO 1 tab Q4H PRN Administration Moderate Pain (4-6) Atorvastatin Calcium 40 mg 11/13/19 21:00 11/13/19 21:00 Lipitor PO 40 mg HS MITCHELL Administration Hydralazine HCl 10 mg 11/11/19 17:10 11/12/19 00:42 Apresoline SLOW IVP 10 mg Q15MIN PRN Administration Sbp Greater Than 140 Sodium Chloride 1,000 mls @ 75 mls/hr 11/10/19 20:45 11/14/19 02:08 Normal Saline 0.9% IV 1,000 mls .[id number] MITCHELL Administration Levetiracetam 500 mg/ Device 100 mls @ 200 mls/hr 11/11/19 09:00 11/14/19 08: 38 IVPB 100 mls BID MITCHELL Administration Nicardipine HCl 50 mg/ Sodium 250 mls @ 0 mls/hr 11/11/19 17:10 11/13/19 05: 58 Chloride IV 250 mls INF MITCHELL Administration Protocol As Directed Insulin Human Lispro 0 units 11/11/19 10:26 11/13/19 17:40 Humalog SC 2 units .MODERATE SLIDING SC PRN Administration Moderate Correctional Scale Labetalol HCl 10 mg 11/11/19 17:10 11/12/19 02:05 Normodyne SLOW IVP 2 ml Q15MIN PRN Administration SBP greater than 140 Lisinopril 10 mg 11/13/19 09:00 11/14/19 08:38 Zestril PO 10 mg BID MITCHELL Administration Metformin HCl 500 mg 11/13/19 08:00 11/14/19 08:38 Glucophage PO 500 mg QAM-WM MITCHELL Administration Metoprolol Tartrate 50 mg 11/13/19 04:00 11/14/19 04:55 Lopressor PO 50 mg 0400,1600 MITCHELL Administration Nifedipine 30 mg 11/13/19 09:00 11/14/19 08:39 Procardia Xl PO 30 mg DAILY MITCHELL Administration Ondansetron HCl 4 mg 11/10/19 20:44 11/13/19 08:07 Zofran IVP 4 mg Q6H PRN Administration Nausea/Vomiting Pantoprazole Sodium 40 mg 11/13/19 09:00 11/14/19 08:39 Protonix IVP 40 mg BID MITCHELL Administration Sodium Chloride 10 ml 11/10/19 20:44 11/11/19 23:19 Flush - Normal Saline IVF 10 ml PRN PRN Administration Saline Flush - Exam General Appearance: awake alert Eye: PERRL, anicteric sclera ENT: no oropharyngeal lesions, moist mucosa Neck: supple, no JVD Heart: RRR, no murmur Respiratory: no wheezes, no rales Gastrointestinal: soft, non-tender, non-distended, normal bowel sounds Extremities: no cyanosis, no edema Neurological: cranial nerve grossly intact, no focal deficits Hosp A/P (1) ICH (intracerebral hemorrhage) Code(s): I61.9 - NONTRAUMATIC INTRACEREBRAL HEMORRHAGE, UNSPECIFIED Status: Acute Qualifiers: Intracerebral hemorrhage etiology: nontraumatic Cerebral hemorrhage location: cerebral hemisphere, cortical portion Laterality: left Qualified Code(s): I61.1 - Nontraumatic intracerebral hemorrhage in hemisphere, cortical (2) Hypertensive emergency Code(s): I16.1 - HYPERTENSIVE EMERGENCY Status: Resolved (3) Obesity (BMI 30.0-34.9) Code(s): E66.9 - OBESITY, UNSPECIFIED Status: Chronic (4) DM type 2 (diabetes mellitus, type 2) Status: Chronic Qualifiers: Diabetes mellitus detention insulin use: without detention use - Plan on lopressor 50mg bid, procardial xl 30mg daily continue metformin, prophylactic keppra, lipitor parieto-occipital hemorrhage with intraventricular extn has large posterior fossa arachnoid cyst compressing brain stem structures, mgmt per Nsx hemostable oral solid diet, oob to chair and mobilize as tolerated echo shows normal ef and wall motion may use haldol prn or xanax for intermittent agitation
[2019-11-14] MEDS ORDERED: Haloperidol Lactate 5 MG/ML VIAL SLOW IVP SCH ×3 (12:00→13:45)
[2019-11-14] MEDS ORDERED: Lorazepam 2 MG/ML VIAL ONE (12:07)
[2019-11-14] MEDS ORDERED: Lorazepam 2 MG/ML VIAL SLOW IVP SCH ×2 (12:15→14:45)
[2019-11-14] MEDS: Lorazepam 2 MG/ML VIAL SLOW IVP SCH ×2 (12:23→13:01)
[2019-11-14] MEDS ORDERED: Haloperidol Lactate 5 MG/ML VIAL IVPB PRN (12:31)
--- NOTE | 2019-11-14 13:37 | PRG ---
DATE OF SERVICE: 11/14/2019 This is Ru French PA-C dictating a report for Stevie Pedro MD. This is a 50-minute subsequent patient evaluation, of which greater than 50% of the exam was spent counseling and coordinating the patient's care, remainder of the exam was spent in review of the patient's medical records and review of appropriate imaging studies. Mr. Marquis is hospital day #4, having sustained a left intraparenchymal hemorrhage. There is concern for possible AVM at this hemorrhage site. There is some extension into the ventricular system. Review of the patient's CTA as we are trying to better assess if there is the possibility of an AVM at this point is stable from Thursday. The size of the ventricles remain stable; although, there is some enlargement of the ventricles. The patient neurologically appears to be fine. According to nursing staff, however, the patient has been intermittently confused and combative. When he is calm, his blood pressure is very well controlled, in fact he has not been on Cardene, but has been on oral metoprolol as well as intermittently on some hydralazine. We need exceptional blood pressure control so as we cannot prevent the expansion of his hemorrhage. On neurological exam today, the patient is awake, alert and mostly appropriate. He is calm. He follows commands in all extremities and appears to be improving in regard to his right-sided arm and leg weakness. He is weaker in the right arm than in the right leg. His pupils are pinpoint, but appear to be symmetric. He does not appear to have any nystagmus on exam. He does have a peripheral vision deficit on the right when testing confrontation. He believes the year is 1996 and that it is Thursday, although he does understand that it is October, it is around the Jennifer time. I would like the patient to continue to work with therapies. But again, blood pressure control is paramount. We would like to transfer him out to the unit into the floor; however, again we must be sure that his blood pressures under very good control with systolic blood pressure remain less than 140 diastolic less than 90 to again ensure adequate treatment of his hemorrhage. At this time, there is no role for neurosurgical intervention, but we will continue to monitor the patient. We will plan for an MRI of the brain with and without contrast in the next 4 to 6 weeks and also formal angiogram with Dr. Bhatt in the next 4 to 6 weeks, so that we can give this hemorrhage time to liquify and have better visualization on all studies. Please call with any changes in the patient's neurologic status. Otherwise, we would hope to transfer him to the floor perhaps tomorrow as long as his blood pressure is under good control. Job ID: [id number]
--- NOTE | 2019-11-14 14:02 | PRG ---
DATE OF SERVICE: 11/14/2019 SUBJECTIVE: Pablo Marquis is intermittently combative with the nurses. In no distress. He is handling secretions. OBJECTIVE: VITAL SIGNS: Stable. Blood pressure 130/77, heart rate 65, respiratory rate in the teens LUNGS: Clear. HEART: Regular rhythm. ABDOMEN: Soft. LABORATORY DATA: White count 13.9, hemoglobin 12.5, platelets 221,000, bilateral lower extremity ultrasounds done, were negative for DVT. He had a [place] of [place] CT angio today, shows his left parieto-occipital hemorrhage , increased blood left lateral ventricle per the report. Posterior defect is felt to be a large arachnoid cyst, possible AVM was seen on the MRI Overall, he is stable. Continue to follow while he is in the Critical Care Unit. Job ID: [id number] [facility]
[2019-11-14] MEDS ORDERED: Diazepam 5 MG TAB PO PRN (14:35)
[2019-11-14] MEDS: hydrALAZINE 20 MG/ML VIAL SLOW IVP PRN ×2 (14:37→22:01)
[2019-11-14] MEDS ORDERED: Diazepam 5 MG TAB PO SCH (14:45)
[2019-11-14] MEDS ORDERED: Thiamine HCl 200 MG/2 ML VIAL IM SCH (14:45)
[2019-11-14] MEDS ORDERED: Promethazine HCl 25 MG/ML VIAL SLOW IVP SCH (14:45)
--- NOTE | 2019-11-14 15:22 | PQF ---
ZOILA NIETO MORGAN, PA -C [id number] CLINICAL DOCUMENTATION IMPROVEMENT CLARIFICATION FORM: ICD-10 Updated PLEASE DO AN ADDENDUM TO THE PROGRESS NOTE WITH ANY DOCUMENTATION UPDATES OR ADDITIONS AND CARRY THROUGH TO DC SUMMARY. THANK YOU. DATE: 11/14/19 ATTN: DEYANIRA Sofia Please exercise your independent, professional judgment in responding to the clarification form. Clinical indicators are provided on the bottom of this form for your review Please check appropriate box(s): [ ] Encephalopathy: Type: [ ] Acute [ ] Subacute [ ] Chronic Etiology: [ ] Hypertensive [ ] brain compression [ ] ICH [ ] Unspecified [ ] in the setting of underlying dementia [ ] Other (please specify) [ ] Transient Alteration of Awareness [ ] Other diagnosis [ ] Unable to determine In addition, please specify: Present on Admission (POA): [ ] Yes [ ] No [ ] Unable to determine For continuity of documentation, please document condition throughout progress notes and discharge summary. Thank You. CLINICAL INDICATORS - SIGNS / SYMPTOMS / LABS / RESULTS AND LOCATION IN EMR 11/11 Pedro: "He is confused." 11/12 Jagadeeshan: "parieto-occiptal hemorrhage with intraventricular extn. has large posterior fossa arachnoidyst compressing brain stem structures" RISK FACTORS / RESULTS AND LOCATION IN EMR 11/12 Jagadeeshan: "parieto-occiptal hemorrhage with intraventricular extn. has large posterior fossa arachnoid cyst compressing brain stem structures" 11/14 Jagadeeshan: "HTN emergency resolved" TREATMENTS / RESULTS AND LOCATION IN EMR Neuro checks Q1H 11/10 per orders Antihypertensives (IV)--> Cardene drip 11/11-11/13 per orders IV fluids--> NS at75 11/10 to date per orders IV decadron 11/13 per orders (This form is maintained as a part of the permanent medical record) 2014 [employer]. All Rights Reserved Sruthi Hamilton RN, BSN, CCDS [email or web address]
[2019-11-14] MEDS: Haloperidol Lactate 5 MG/ML VIAL IM SCH ×3 (17:03→20:52)
[2019-11-14] MEDS: niCARdipine 50 MG in Sodium Chloride 0.9% 250 ML 230 ML IV SCH ×2 (17:50→22:37)
[2019-11-14] MEDS ORDERED: Multivitamins, Adult 10 ML, Thiamine HCl 100 MG, Folic Acid 1 MG in Dextrose 5 %-0.45 %... IV SCH (18:30)
[2019-11-14 19:44] LABS: Amphetamine Not Detected (NotDetected); Barbiturates Screen Not Detected (NotDetected); Benzodiazepine Screen Detected (NotDetected); Cocaine Metabolite Screen Not Detected (NotDetected); Medtox Control Line Valid? VALID (VALID); Medtox Reader # READER 1; Methadone Not Detected (NotDetected); Methamphetamine Not Detected (NotDetected); Opiate Screen Detected (NotDetected); Oxycodone Screen Not Detected (NotDetected); Phencyclidine (PCP) Not Detected (NotDetected); THC/Cannabinoid Screen Not Detected (NotDetected); Tricyclic Screen Not Detected (NotDetected)
[2019-11-14] MEDS: Labetalol HCl 100 MG/20 ML VIAL SLOW IVP PRN (20:16)
[2019-11-14] MEDS: Atorvastatin Calcium 40 MG TAB PO SCH (20:52)
[2019-11-14] MEDS ORDERED: Nitroglycerin 2% Ointment 1 INCH/1 GM Packet TOP SCH (22:30)
[2019-11-14] MEDS ORDERED: Acetaminophen 650 MG Suppository PR PRN (22:59)
[2019-11-15] MEDS: Haloperidol Lactate 5 MG/ML VIAL IM SCH ×7 (00:21→23:20)
[2019-11-15] MEDS: niCARdipine 50 MG in Sodium Chloride 0.9% 250 ML 230 ML IV SCH ×4 (02:06→16:44)
[2019-11-15] MEDS ORDERED: Diazepam 5 MG TAB PO PRN (04:00)
[2019-11-15] MEDS: Metoprolol Tartrate 50 MG TAB PO SCH ×2 (04:15→15:47)
[2019-11-15 04:31] LABS: ALT (SGPT) 15 U/L (8-55); AST (SGOT) 19 U/L (5-34); Albumin 3.6 g/dL (3.5-5.0); Anion Gap 12 mmol/L (10-20); BUN (Urea Nitrogen) 15 mg/dL (8.4-25.7); Bilirubin, Direct 0.3 mg/dL (0.1-0.3); Bilirubin, Total 0.8 mg/dL (0.2-1.2); Calc. Creatinine Clearance 124 mL/min (70-130); Calcium 8.5 mg/dL (7.8-10.44); Carbon Dioxide 21 mmol/L (22-29); Chloride 108 mmol/L (98-107); Estimated GFR-MDRD Greater than 90; Globulin 3.1 g/dL (2.4-3.5); Glucose 157 mg/dL (70-105); Potassium 3.6 mmol/L (3.5-5.1); Protein, Total 6.7 g/dL (6.0-8.3); Sodium 137 mmol/L (136-145)
[2019-11-15 04:42] LABS: Alkaline Phosphatase 72 U/L (40-110)
[2019-11-15 05:12] LABS: Hemoglobin 12.7 g/dL (14.0-18.0); Mean Corpuscular HGB CONC 34.4 g/dL (32.0-36.0); Mean Corpuscular Hemoglobin 31.2 pg (27.0-31.0); Mean Corpuscular Volume 90.7 fL (78.0-98.0); RBC Distribution Width 11.8 % (11.5-14.5); Red Blood Cell (RBC) Count 4.09 mill/uL (4.70-6.10)
[2019-11-15] MEDS: Nitroglycerin 2% Ointment 1 INCH/1 GM Packet TOP SCH ×3 (05:46→21:03)
[2019-11-15 05:56] LABS: Band 1 % (5-11); Lymphocytes 18 % (21-51); MDiff Complete? YES; Mean Platelet Volume 7.3 fL (7.4-10.4); Monocytes 14 % (0-10); Neutrophil 66 % (42-75); Platelet Count 213 thou/uL (130-400); White Blood Cell (WBC) Count 14.5 thou/uL (4.8-10.8)
[2019-11-15 06:22] LABS: Syphilis Antibody Nonreactive (Nonreactive); Syphilis Antibody Index 0.04 S/CO (<1.00 Non-Reactive)
[2019-11-15] MEDS: Sodium Chloride 0.9% 1,000 ML IV SCH ×2 (06:27→22:20)
--- NOTE | 2019-11-15 07:53 | PRG ---
DATE OF SERVICE: 11/15/2019 I saw Mr. Marquis on rounds this morning. Yesterday, he needed some Haldol and Ativan to be more compliant and remained in the bed. He was trying to extricate himself. Overnight, he has been sleeping comfortably and he feels better this morning. I see maximum temperature recorded of 98.7 degrees Fahrenheit. His blood pressures have been between the 120s to 130s and he remains on a Cardene drip. I do not find any new deficits on examination. He has some field cut on the right side. He has a little bit slower movement on the right side of the body than the left, but he moves all extremities well. White blood cell count is 14.5. His sodium is 137. Today, we will let Mr. Marquis get to a chair. He can remain in the MEDIchair and do some aggressive physical therapy, maybe he will be tired enough to get a good night sleep again tonight. Once he is off the Cardene drip and his blood pressure is under good control, he can be moved out of the ICU. Job ID: [id number]
[2019-11-15] MEDS: metFORMIN 500 MG TAB PO SCH (08:20)
[2019-11-15] MEDS: Folic Acid 1 MG TAB PO SCH (08:21)
[2019-11-15] MEDS: Lisinopril 10 MG TAB PO SCH ×2 (08:21→20:36)
[2019-11-15] MEDS: Multivitamin W/ Minerals 1 TAB PO SCH (08:21)
[2019-11-15] MEDS: NIFEdipine XL 30 MG TAB PO SCH (08:21)
[2019-11-15] MEDS: Thiamine 100 MG TAB PO SCH (08:22)
[2019-11-15] MEDS: Magnesium Oxide 400 MG TAB PO SCH (08:22)
[2019-11-15] MEDS: Pantoprazole 40 MG VIAL IVP SCH ×2 (08:23→20:40)
[2019-11-15] MEDS: HYDROcodone/Acetaminophen 10/325 mg Tablet PO PRN ×2 (08:29→20:37)
--- NOTE | 2019-11-15 10:48 | ULT ---
BILATERAL LOWER EXTREMITY VENOUS ULTRASOUND: HISTORY: Immobility at risk for DVT. Bilateral lower extremity edema. TECHNIQUE: Multiplanar, patino scale, and color Doppler images were obtained in a bilateral lower extremity venous ultrasound. Spectral analysis of the Doppler waveforms was performed. FINDINGS: The bilateral common femoral veins, profunda femoral veins, superficial femoral veins, and popliteal veins are normal in appearance without visible thrombus. These vessels demonstrate normal compressio n, flow, and augmentation. The posterior tibial vein and the greater saphenous veins are also patent . IMPRESSION: No evidence of deep vein thrombosis. POS: [facility]
--- NOTE | 2019-11-15 11:25 | PRG ---
DATE OF SERVICE: 11/15/2019 SUBJECTIVE: Pablo Marquis is more cooperative today per the nurses. He slept last night. He had a headache this morning, which was treated with hydrocodone. OBJECTIVE: GENERAL: He is resting comfortably now. VITAL SIGNS: Blood pressure 120/63, heart rate 65, respiratory rate in the teens. HEENT: He is snoring, but he is not having obstructive apnea. LUNGS: Remarkable for coarse equal breath sounds. HEART: Regular rhythm. ABDOMEN: Soft. EXTREMITIES: Without asymmetry or edema. LABORATORY DATA: White count 14.5, hemoglobin 12.7, platelets 213. Sodium 137, potassium 3.6, chloride 108, bicarb 21, BUN 15, and creatinine 0.99. IMPRESSION: Parenchymal brain hemorrhage, clinically stable for now. Encephalopathy with his hemorrhage, clinically stable, perhaps, slightly improved. Job ID: [id number]
--- NOTE | 2019-11-15 12:53 | PDOC.HOSPP ---
- Subjective Encounter Date: 11/15/19 Encounter Time: 09:45 Subjective: slept well last night per staff tried to stand with PT this am didn't eat his breakfast currently is sleeping - Objective Vital Signs & Weight: Vital Signs (12 hours) Temp Pulse BP Pulse Ox 11/15/19 12:00 98.3 F 11/15/19 08:21 71 142/61 H 11/15/19 07:29 99 11/15/19 03:00 98.5 F Weight Weight 243 lb 9.773 oz Most Recent Monitor Data Heart Rate from ECG 65 NIBP 126/66 NIBP BP-Mean 86 Respiration from ECG 25 SpO2 94 I&O: 11/14/19 11/15/19 11/16/19 06:59 06:59 06:59 Intake Total 3309 3913.8 0 Output Total 1200 2101 350 Balance 2109 1812.8 -350 Result Diagrams: 11/15/19 03:36 11/15/19 03:36 Additional Labs: Accuchecks 11/15/19 11/15/19 11/14/19 10:59 06:02 17:13 POC Glucose 115 H 136 H 116 H Hospitalist ROS - Medication Medications: Active Medications Generic Name Dose Route Start Last Admin Trade Name Freq PRN Reason Stop Dose Admin Acetaminophen 650 mg 11/10/19 20:44 11/11/19 14:31 Tylenol PO 650 mg Q4H PRN Administration Headache/Fever/Mild Pain (1-3) Acetaminophen 650 mg 11/14/19 22:59 11/14/19 23:04 Tylenol [place] 650 mg Q6H PRN Administration .FEVER Hydrocodone Bitart/Acetaminophen 1 tab 11/11/19 15:22 11/12/19 08:26 [place] 5/325 PO 1 tab Q4H PRN Administration Headache Hydrocodone Bitart/Acetaminophen 1 tab 11/12/19 09:16 11/12/19 16:28 [place] 10/325 PO 1 tab Q4H PRN Administration Moderate Pain (4-6) Hydrocodone Bitart/Acetaminophen 2 tab 11/12/19 09:16 11/15/19 08:29 [place] 10/325 PO 2 tab Q4H PRN Administration Severe Pain (7-10) Atorvastatin Calcium 40 mg 11/13/19 21:00 11/14/19 20:52 Lipitor PO Not Given HS MITCHELL Folic Acid 1 mg 11/15/19 09:00 11/15/19 08:21 Folvite PO 1 mg DAILY MITCHELL Administration Haloperidol Lactate 5 mg 11/14/19 16:00 11/15/19 12:05 Haldol IM Not Given Q4H MITCHELL Hydralazine HCl 10 mg 11/11/19 17:10 11/14/19 22:01 Apresoline SLOW IVP 10 mg Q15MIN PRN Administration Sbp Greater Than 140 Sodium Chloride 1,000 mls @ 75 mls/hr 11/10/19 20:45 11/15/19 06:27 Normal Saline 0.9% IV 1,000 mls .[id number] MITCHELL Administration Levetiracetam 500 mg/ Device 100 mls @ 200 mls/hr 11/11/19 09:00 11/15/19 08: 22 IVPB 100 mls BID MITCHELL Administration Nicardipine HCl 50 mg/ Sodium 250 mls @ 0 mls/hr 11/11/19 17:10 11/15/19 10: 13 Chloride IV 250 mls INF MITCHELL Administration Protocol As Directed Dexmedetomidine HCl 400 mcg/ 100 mls @ 0 mls/hr 11/14/19 17:00 11/15/19 00:23 Sodium Chloride IVPB 100 mls INF MITCHELL Administration Protocol Titrate Insulin Human Lispro 0 units 11/11/19 10:26 11/13/19 17:40 Humalog SC 2 units .MODERATE SLIDING SC PRN Administration Moderate Correctional Scale Iron/Minerals/Multivitamins 1 tab 11/15/19 09:00 11/15/19 08:21 Theragran M PO 1 tab DAILY MITCHELL Administration Labetalol HCl 10 mg 11/11/19 17:10 11/14/19 20:16 Normodyne SLOW IVP 2 ml Q15MIN PRN Administration SBP greater than 140 Lisinopril 10 mg 11/13/19 09:00 11/15/19 08:21 Zestril PO 10 mg BID MITCHELL Administration Magnesium Oxide 400 mg 11/15/19 09:00 11/15/19 08:22 Magnesium Oxide PO 400 mg DAILY MITCHELL Administration Metformin HCl 500 mg 11/13/19 08:00 11/15/19 08:20 Glucophage PO 500 mg QAM-WM MITCHELL Administration Metoprolol Tartrate 50 mg 11/13/19 04:00 11/15/19 04:15 Lopressor PO 50 mg 0400,1600 MITCHELL Administration Nifedipine 30 mg 11/13/19 09:00 11/15/19 08:21 Procardia Xl PO 30 mg DAILY MITCHELL Administration Nitroglycerin 0.5 inch 11/15/19 06:00 11/15/19 05:46 Nitro-Bid 2% Ointment TOP 0.5 inch Q8HR MITCHELL Administration Ondansetron HCl 4 mg 11/10/19 20:44 11/13/19 08:07 Zofran IVP 4 mg Q6H PRN Administration Nausea/Vomiting Pantoprazole Sodium 40 mg 11/13/19 09:00 11/15/19 08:23 Protonix IVP 40 mg BID MITCHELL Administration Sodium Chloride 10 ml 11/10/19 20:44 11/11/19 23:19 Flush - Normal Saline IVF 10 ml PRN PRN Administration Saline Flush Thiamine HCl 100 mg 11/15/19 09:00 11/15/19 08:22 Thiamine PO 100 mg DAILY MITCHELL Administration - Exam General Appearance: NAD Eye: PERRL, anicteric sclera ENT: no oropharyngeal lesions, moist mucosa Neck: supple, no JVD Heart: RRR, no murmur Respiratory: no wheezes, no rales Gastrointestinal: soft, non-tender, non-distended, normal bowel sounds Extremities: no cyanosis, no edema Neurological: cranial nerve grossly intact Neurological - other findings: mild right hemiparesis Hosp A/P (1) ICH (intracerebral hemorrhage) Code(s): I61.9 - NONTRAUMATIC INTRACEREBRAL HEMORRHAGE, UNSPECIFIED Status: Acute Qualifiers: Intracerebral hemorrhage etiology: nontraumatic Cerebral hemorrhage location: cerebral hemisphere, cortical portion Laterality: left Qualified Code(s): I61.1 - Nontraumatic intracerebral hemorrhage in hemisphere, cortical (2) Hypertensive emergency Code(s): I16.1 - HYPERTENSIVE EMERGENCY Status: Resolved (3) Obesity (BMI 30.0-34.9) Code(s): E66.9 - OBESITY, UNSPECIFIED Status: Chronic (4) DM type 2 (diabetes mellitus, type 2) Status: Chronic Qualifiers: Diabetes mellitus nursing home insulin use: 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
[2019-11-15] MEDS: Atorvastatin Calcium 40 MG TAB PO SCH (20:36)
[2019-11-15] MEDS: Acetaminophen 325 MG TAB PO PRN (20:37)
--- NOTE | 2019-11-15 22:31 | RAD ---
EXAM: CHEST ONE VIEW HISTORY: Fever. COMPARISON: None FINDINGS: Cardiac silhouette is magnified by projection. Pulmonary vasculature is at the upper limits of normal . There is linear and hazy increased density at the medial right lung base probably attributable to atelectasis. No consolidation or pleural fluid is seen. Degenerative changes are seen in the spine. IMPRESSION: Linear and slight patchy densities medial right lung base. Findings are probably attributable to atel ectasis as opposed to developing area of pneumonitis; however, follow-up chest x-ray is recommended.
[2019-11-15 22:48] LABS: Lactic Acid 0.6 mmol/L (0.5-2.2)
[2019-11-16] MEDS: Haloperidol Lactate 5 MG/ML VIAL IM SCH ×3 (02:49→12:09)
[2019-11-16] MEDS: Metoprolol Tartrate 50 MG TAB PO SCH ×2 (03:00→15:41)
[2019-11-16 04:21] LABS: Hemoglobin 11.6 g/dL (14.0-18.0); Lymphocytes 22 % (21-51); MDiff Complete? YES; Mean Corpuscular HGB CONC 34.7 g/dL (32.0-36.0); Mean Corpuscular Hemoglobin 31.6 pg (27.0-31.0); Mean Corpuscular Volume 90.8 fL (78.0-98.0); Mean Platelet Volume 7.3 fL (7.4-10.4); Monocytes 7 % (0-10); Neutrophil 71 % (42-75); Platelet Count 200 thou/uL (130-400); RBC Distribution Width 11.5 % (11.5-14.5); Red Blood Cell (RBC) Count 3.68 mill/uL (4.70-6.10)
[2019-11-16 04:24] LABS: Anion Gap 12 mmol/L (10-20); BUN (Urea Nitrogen) 25 mg/dL (8.4-25.7); Calc. Creatinine Clearance 115 mL/min (70-130); Calcium 8.3 mg/dL (7.8-10.44); Carbon Dioxide 20 mmol/L (22-29); Chloride 108 mmol/L (98-107); Estimated GFR-MDRD 85; Glucose 99 mg/dL (70-105); Potassium 3.4 mmol/L (3.5-5.1); Sodium 137 mmol/L (136-145)
[2019-11-16] MEDS: Nitroglycerin 2% Ointment 1 INCH/1 GM Packet TOP SCH (05:40)
--- NOTE | 2019-11-16 07:24 | PRG ---
DATE OF SERVICE: 11/16/2019 I saw Pablo Marquis in the ICU this morning. At about 11:00 p.m., the Cardene was finally weaned off. His blood pressure has been under relatively good control without it since then. Overnight, there were no issues that were reported. There was a temperature of 101.8 degrees Fahrenheit, but it was an isolated fever and has not come back. Blood pressures have been between 120s and 130s. An ultrasound of the lower extremities was negative for DVT yesterday. On his neurological examination, Mr. Marquis has not changed since yesterday. I think Mr. Marquis is ready for floor care. If he spikes another fever, we will get cultures, but if he does not, we will say that the recording was spurious. He will need inpatient rehabilitation and we will start the process for that. He should continue his PT, OT, and speech therapy while he is in the hospital. (15 min on unit) Job ID: [id number] MTDD
[2019-11-16] MEDS: metFORMIN 500 MG TAB PO SCH (07:40)
[2019-11-16] MEDS: NIFEdipine XL 30 MG TAB PO SCH (08:22)
[2019-11-16] MEDS: Thiamine 100 MG TAB PO SCH (08:22)
[2019-11-16] MEDS: Magnesium Oxide 400 MG TAB PO SCH (08:22)
[2019-11-16] MEDS: Lisinopril 10 MG TAB PO SCH ×2 (08:22→22:06)
[2019-11-16] MEDS: Multivitamin W/ Minerals 1 TAB PO SCH (08:22)
[2019-11-16] MEDS: Pantoprazole 40 MG VIAL IVP SCH (08:24)
[2019-11-16] MEDS: Folic Acid 1 MG TAB PO SCH (08:25)
[2019-11-16] MEDS: Sodium Chloride 0.9% 1,000 ML IV SCH (11:27)
[2019-11-16] MEDS: Labetalol HCl 100 MG/20 ML VIAL SLOW IVP PRN ×6 (11:43→22:59)
--- NOTE | 2019-11-16 12:23 | PDOC.HOSPP ---
- Subjective Encounter Date: 11/16/19 Encounter Time: 08:00 Subjective: awake, eating his breakfast with left hand moves right extremities but not as freely as left has remained calm from yesterday evening with no agitation or irritation - Objective Vital Signs & Weight: Vital Signs (12 hours) Temp Pulse Pulse Pulse Resp BP BP 11/16/19 12:10 83 169/79 H 11/16/19 11:54 101.3 F H 83 18 11/16/19 11:43 99.3 F 86 174/82 H 11/16/19 09:26 88 86 161/82 H 11/16/19 08:53 99.9 F H 86 16 11/16/19 08:22 95 136/75 11/16/19 08:00 99.1 F 11/16/19 07:02 11/16/19 03:00 98.8 F BP BP Pulse Ox 11/16/19 12:10 11/16/19 11:54 200/79 H 94 L 11/16/19 11:43 11/16/19 09:26 150/71 H 11/16/19 08:53 162/85 H 98 11/16/19 08:22 11/16/19 08:00 11/16/19 07:02 100 11/16/19 03:00 Weight Weight 245 lb 2.464 oz Most Recent Monitor Data Heart Rate from ECG 87 NIBP 136/75 NIBP BP-Mean 95 Respiration from ECG 22 SpO2 97 I&O: 11/15/19 11/16/19 11/17/19 06:59 06:59 06:59 Intake Total 3913.8 3009 390 Output Total 2101 1090 300 Balance 1812.8 1919 90 Result Diagrams: 11/16/19 03:31 11/16/19 03:31 Additional Labs: Accuchecks 11/16/19 11/15/19 11/15/19 05:42 20:31 15:58 POC Glucose 98 113 H 99 Hospitalist ROS - Medication Medications: Active Medications Generic Name Dose Route Start Last Admin Trade Name Freq PRN Reason Stop Dose Admin Acetaminophen 650 mg 11/10/19 20:44 11/15/19 20:37 Tylenol PO 650 mg Q4H PRN Administration Headache/Fever/Mild Pain (1-3) Acetaminophen 650 mg 11/14/19 22:59 11/14/19 23:04 Tylenol [place] 650 mg Q6H PRN Administration .FEVER Hydrocodone Bitart/Acetaminophen 1 tab 11/11/19 15:22 11/12/19 08:26 [place] 5/325 PO 1 tab Q4H PRN Administration Headache Hydrocodone Bitart/Acetaminophen 1 tab 11/12/19 09:16 11/15/19 20:37 [place] 10/325 PO 1 tab Q4H PRN Administration Moderate Pain (4-6) Hydrocodone Bitart/Acetaminophen 2 tab 11/12/19 09:16 11/15/19 08:29 [place] 10/325 PO 2 tab Q4H PRN Administration Severe Pain (7-10) Atorvastatin Calcium 40 mg 11/13/19 21:00 11/15/19 20:36 Lipitor PO 40 mg HS MITCHELL Administration Folic Acid 1 mg 11/15/19 09:00 11/16/19 08:25 Folvite PO 1 mg DAILY MITCHELL Administration Haloperidol Lactate 5 mg 11/14/19 16:00 11/16/19 12:09 Haldol IM Not Given Q4H MITCHELL Hydralazine HCl 10 mg 11/11/19 17:10 11/14/19 22:01 Apresoline SLOW IVP 10 mg Q15MIN PRN Administration Sbp Greater Than 140 Levetiracetam 500 mg/ Device 100 mls @ 200 mls/hr 11/11/19 09:00 11/16/19 08: 21 IVPB 100 mls BID MITCHELL Administration Nicardipine HCl 50 mg/ Sodium 250 mls @ 0 mls/hr 11/11/19 17:10 11/15/19 16: 44 Chloride IV 250 mls INF MITCHELL Administration Protocol As Directed Dexmedetomidine HCl 400 mcg/ 100 mls @ 0 mls/hr 11/14/19 17:00 11/15/19 00:23 Sodium Chloride IVPB 100 mls INF MITCHELL Administration Protocol Titrate Insulin Human Lispro 0 units 11/11/19 10:26 11/13/19 17:40 Humalog SC 2 units .MODERATE SLIDING SC PRN Administration Moderate Correctional Scale Iron/Minerals/Multivitamins 1 tab 11/15/19 09:00 11/16/19 08:22 Theragran M PO 1 tab DAILY MITCHELL Administration Labetalol HCl 10 mg 11/11/19 17:10 11/16/19 12:10 Normodyne SLOW IVP 2 ml Q15MIN PRN Administration SBP greater than 140 Lisinopril 10 mg 11/13/19 09:00 11/16/19 08:22 Zestril PO 10 mg BID MITCHELL Administration Magnesium Oxide 400 mg 11/15/19 09:00 11/16/19 08:22 Magnesium Oxide PO 400 mg DAILY MITCHELL Administration Metformin HCl 500 mg 11/13/19 08:00 11/16/19 07:40 Glucophage PO 500 mg QAM-WM MITCHELL Administration Metoprolol Tartrate 50 mg 11/13/19 04:00 11/16/19 03:00 Lopressor PO 50 mg 0400,1600 MITCHELL Administration Nifedipine 30 mg 11/13/19 09:00 11/16/19 08:22 Procardia Xl PO 30 mg DAILY MITCHELL Administration Nitroglycerin 0.5 inch 11/15/19 06:00 11/16/19 05:40 Nitro-Bid 2% Ointment TOP 0.5 inch Q8HR MITCHELL Administration Ondansetron HCl 4 mg 11/10/19 20:44 11/13/19 08:07 Zofran IVP 4 mg Q6H PRN Administration Nausea/Vomiting Pantoprazole Sodium 40 mg 11/13/19 09:00 11/16/19 08:24 Protonix IVP 40 mg BID MITCHELL Administration Sodium Chloride 10 ml 11/10/19 20:44 11/11/19 23:19 Flush - Normal Saline IVF 10 ml PRN PRN Administration Saline Flush Thiamine HCl 100 mg 11/15/19 09:00 11/16/19 08:22 Thiamine PO 100 mg DAILY MITCHELL Administration - Exam General Appearance: awake alert Eye: PERRL, anicteric sclera ENT: no oropharyngeal lesions, moist mucosa Neck: supple, no JVD Heart: RRR, no murmur Respiratory: no wheezes, no rales Gastrointestinal: soft, non-tender, non-distended, normal bowel sounds Extremities: no cyanosis, no edema Neurological - other findings: right hemiparesis Hosp A/P (1) ICH (intracerebral hemorrhage) Code(s): I61.9 - NONTRAUMATIC INTRACEREBRAL HEMORRHAGE, UNSPECIFIED Status: Acute Qualifiers: Intracerebral hemorrhage etiology: nontraumatic Cerebral hemorrhage location: cerebral hemisphere, cortical portion Laterality: left Qualified Code(s): I61.1 - Nontraumatic intracerebral hemorrhage in hemisphere, cortical (2) Hypertensive emergency Code(s): I16.1 - HYPERTENSIVE EMERGENCY Status: Resolved (3) Obesity (BMI 30.0-34.9) Code(s): E66.9 - OBESITY, UNSPECIFIED Status: Chronic (4) DM type 2 (diabetes mellitus, type 2) Status: Chronic Qualifiers: Diabetes mellitus 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: without nursing home 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
[2019-11-16] MEDS ORDERED: Haloperidol Lactate 5 MG/ML VIAL IM PRN (12:26)
[2019-11-16] MEDS: hydrALAZINE 20 MG/ML VIAL SLOW IVP PRN ×2 (12:50→21:55)
[2019-11-16] MEDS: Acetaminophen 325 MG TAB PO PRN (13:54)
[2019-11-16] MEDS: HYDROcodone/Acetaminophen 10/325 mg Tablet PO PRN ×2 (18:45→22:50)
[2019-11-16] MEDS: Atorvastatin Calcium 40 MG TAB PO SCH (22:03)
[2019-11-17] MEDS: Labetalol HCl 100 MG/20 ML VIAL SLOW IVP PRN ×9 (02:29→23:26)
[2019-11-17] MEDS: Metoprolol Tartrate 50 MG TAB PO SCH ×2 (04:51→15:14)
[2019-11-17 05:40] LABS: Anion Gap 13 mmol/L (10-20); BUN (Urea Nitrogen) 19 mg/dL (8.4-25.7); Calc. Creatinine Clearance 136 mL/min (70-130); Calcium 8.9 mg/dL (7.8-10.44); Carbon Dioxide 21 mmol/L (22-29); Chloride 106 mmol/L (98-107); Estimated GFR-MDRD Greater than 90; Glucose 141 mg/dL (70-105); Potassium 3.6 mmol/L (3.5-5.1); Sodium 136 mmol/L (136-145)
[2019-11-17] MEDS: hydrALAZINE 20 MG/ML VIAL SLOW IVP PRN (05:45)
[2019-11-17 06:06] LABS: Band 4 % (5-11); Lymphocytes 17 % (21-51); MDiff Complete? YES; Mean Corpuscular HGB CONC 34.5 g/dL (32.0-36.0); Mean Corpuscular Hemoglobin 31.2 pg (27.0-31.0); Mean Corpuscular Volume 90.5 fL (78.0-98.0); Mean Platelet Volume 7.3 fL (7.4-10.4); Monocytes 3 % (0-10); Neutrophil 75 % (42-75); Platelet Count 204 thou/uL (130-400); RBC Distribution Width 11.5 % (11.5-14.5); Red Blood Cell (RBC) Count 3.85 mill/uL (4.70-6.10); White Blood Cell (WBC) Count 12.8 thou/uL (4.8-10.8)
--- NOTE | 2019-11-17 07:34 | PRG ---
DATE OF SERVICE: 11/17/2019 I saw Pablo Marquis on rounds today. He has moved from the ICU to the Stroke Unit. Overnight, he did repeat his spikes in temperature with a T-max of 101.5 degrees. His blood pressures have not been well controlled. When he left the ICU, they were in the 120s to 130s and off the Cardene drip overnight, they range between 140 and 202. Evidently, no calls were made to the Medical Service to adjust the antihypertensive medications. On examination this morning, Mr. Marquis does not complain of significant headache. He awakes and answers questions. He moves all of his extremities. He does not have any new neurological deficit. There is a left field cut and some mild neglect on the right side. If the temperature spikes again today, we will get blood cultures, urine cultures, and sputum cultures. If the blood pressure increases, we will call the Medical Team for antihypertensive medication management to keep his blood pressures in the 140 or less range. Physical therapy, occupational therapy, and rehab screen are beneficial as well. (15 minutes spent on words communicating with the patient and nurses). Job ID: [id number]
[2019-11-17] MEDS: Acetaminophen 325 MG TAB PO PRN ×3 (07:44→18:13)
[2019-11-17] MEDS: metFORMIN 500 MG TAB PO SCH (08:51)
[2019-11-17] MEDS: Lisinopril 10 MG TAB PO SCH ×2 (08:51→20:46)
[2019-11-17] MEDS: NIFEdipine XL 30 MG TAB PO SCH (08:52)
[2019-11-17] MEDS: hydrALAZINE 25 MG TAB PO SCH ×3 (08:53→20:45)
[2019-11-17] MEDS: Multivitamin W/ Minerals 1 TAB PO SCH (08:53)
[2019-11-17] MEDS: levETIRAcetam 500 MG TAB PO SCH ×2 (08:53→20:45)
[2019-11-17] MEDS: Folic Acid 1 MG TAB PO SCH (08:53)
[2019-11-17] MEDS: Magnesium Oxide 400 MG TAB PO SCH (08:53)
[2019-11-17] MEDS: Thiamine 100 MG TAB PO SCH (08:53)
--- NOTE | 2019-11-17 09:21 | RAD ---
CHEST 2 VIEWS: HISTORY: Fever, pneumonia. COMPARISON: 11/15/2019. FINDINGS: Minimal increased bronchovascular markings are noted bilaterally. Heart size is within normal limits . No confluent pneumonia. Slight bilateral costophrenic angle blunting. IMPRESSION: Increased bronchovascular markings bilaterally. Slight nonspecific costophrenic angle blunting. No evidence for confluent lobar pneumonia. POS: TPC
--- NOTE | 2019-11-17 12:27 | PDOC.HOSPP ---
- Subjective Encounter Date: 11/17/19 Encounter Time: 10:30 Subjective: awake, oriented well and responds appropriately to verbal stimuli has not ambulated yet doesn't like breakfast, hope he eats lunch and dinner - Objective Vital Signs & Weight: Vital Signs (12 hours) Temp Pulse Resp BP BP Pulse Ox 11/17/19 11:51 100.2 F H 86 18 151/76 H 93 L 11/17/19 08:53 82 175/82 H 11/17/19 08:52 82 175/82 H 11/17/19 08:51 175/82 H 11/17/19 08:10 93 L 11/17/19 08:07 95 11/17/19 08:00 101.9 F H 81 18 165/85 H 95 11/17/19 07:49 78 180/83 H 11/17/19 06:36 86 179/79 H 11/17/19 05:45 86 202/70 H 11/17/19 05:15 86 202/70 H 11/17/19 04:00 99.8 F H 86 16 196/88 H 95 11/17/19 02:29 87 164/60 H Weight Weight 245 lb 2.464 oz Most Recent Monitor Data Heart Rate from ECG 87 NIBP 136/75 NIBP BP-Mean 95 Respiration from ECG 22 SpO2 97 I&O: 11/16/19 11/17/19 11/18/19 06:59 06:59 06:59 Intake Total 3009 390 Output Total 1090 1000 Balance 1919 -610 Result Diagrams: 11/17/19 05:12 11/17/19 05:12 Additional Labs: Accuchecks 11/17/19 11/17/19 11/16/19 10:47 06:14 21:30 POC Glucose 137 H 142 H 177 H Hospitalist ROS - Medication Medications: Active Medications Generic Name Dose Route Start Last Admin Trade Name Freq PRN Reason Stop Dose Admin Acetaminophen 650 mg 11/10/19 20:44 11/17/19 07:44 Tylenol PO 650 mg Q4H PRN Administration Headache/Fever/Mild Pain (1-3) Acetaminophen 650 mg 11/14/19 22:59 11/14/19 23:04 Tylenol [place] 650 mg Q6H PRN Administration .FEVER Hydrocodone Bitart/Acetaminophen 1 tab 11/11/19 15:22 11/12/19 08:26 [place] 5/325 PO 1 tab Q4H PRN Administration Headache Hydrocodone Bitart/Acetaminophen 1 tab 11/12/19 09:16 11/15/19 20:37 [place] 10/325 PO 1 tab Q4H PRN Administration Moderate Pain (4-6) Hydrocodone Bitart/Acetaminophen 2 tab 11/12/19 09:16 11/16/19 22:50 [place] 10/325 PO 2 tab Q4H PRN Administration Severe Pain (7-10) Atorvastatin Calcium 40 mg 11/13/19 21:00 11/16/19 22:03 Lipitor PO 40 mg HS MITCHELL Administration Folic Acid 1 mg 11/15/19 09:00 11/17/19 08:53 Folvite PO 1 mg DAILY MITCHELL Administration Hydralazine HCl 10 mg 11/11/19 17:10 11/17/19 05:45 Apresoline SLOW IVP 10 mg Q15MIN PRN Administration Sbp Greater Than 140 Hydralazine HCl 50 mg 11/17/19 09:00 11/17/19 08:53 Apresoline PO 50 mg TID MITCHELL Administration Insulin Human Lispro 0 units 11/11/19 10:26 11/13/19 17:40 Humalog SC 2 units .MODERATE SLIDING SC PRN Administration Moderate Correctional Scale Iron/Minerals/Multivitamins 1 tab 11/15/19 09:00 11/17/19 08:53 Theragran M PO 1 tab DAILY MITCHELL Administration Labetalol HCl 10 mg 11/11/19 17:10 11/17/19 07:49 Normodyne SLOW IVP 2 ml Q15MIN PRN Administration SBP greater than 140 Levetiracetam 500 mg 11/17/19 09:00 11/17/19 08:53 Keppra PO 500 mg BID MITCHELL Administration Lisinopril 10 mg 11/13/19 09:00 11/17/19 08:51 Zestril PO 10 mg BID MITCHELL Administration Magnesium Oxide 400 mg 11/15/19 09:00 11/17/19 08:53 Magnesium Oxide PO 400 mg DAILY MITCHELL Administration Metformin HCl 500 mg 11/13/19 08:00 11/17/19 08:51 Glucophage PO 500 mg QAM-WM MITCHELL Administration Metoprolol Tartrate 50 mg 11/13/19 04:00 11/17/19 04:51 Lopressor PO 50 mg 0400,1600 MITCHELL Administration Ondansetron HCl 4 mg 11/10/19 20:44 11/13/19 08:07 Zofran IVP 4 mg Q6H PRN Administration Nausea/Vomiting Pantoprazole Sodium 40 mg 11/17/19 09:00 11/17/19 08:53 Protonix PO 40 mg DAILY MITCHELL Administration Sodium Chloride 10 ml 11/10/19 20:44 11/11/19 23:19 Flush - Normal Saline IVF 10 ml PRN PRN Administration Saline Flush Thiamine HCl 100 mg 11/15/19 09:00 11/17/19 08:53 Thiamine PO 100 mg DAILY MITCHELL Administration - Exam General Appearance: awake alert Eye: PERRL, anicteric sclera ENT: no oropharyngeal lesions, moist mucosa Neck: supple, no JVD Heart: RRR, no murmur Respiratory: no wheezes, no rales Gastrointestinal: soft, non-tender, non-distended, normal bowel sounds Extremities: no cyanosis, no edema Neurological - other findings: right hemiparesis Psychiatric: A&O x 3 Hosp A/P (1) ICH (intracerebral hemorrhage) Code(s): I61.9 - NONTRAUMATIC INTRACEREBRAL HEMORRHAGE, UNSPECIFIED Status: Acute Qualifiers: Intracerebral hemorrhage etiology: nontraumatic Cerebral hemorrhage location: cerebral hemisphere, cortical portion Laterality: left Qualified Code(s): I61.1 - Nontraumatic intracerebral hemorrhage in hemisphere, cortical (2) Hypertensive emergency Code(s): I16.1 - HYPERTENSIVE EMERGENCY Status: Resolved (3) Obesity (BMI 30.0-34.9) Code(s): E66.9 - OBESITY, UNSPECIFIED Status: Chronic (4) DM type 2 (diabetes mellitus, type 2) Status: Chronic Qualifiers: Diabetes mellitus care home insulin use: without care home use (5) Encephalopathy acute Code(s): G93.40 - ENCEPHALOPATHY, UNSPECIFIED Status: Acute - Plan Off and on fever, blood cs x4 -ve, usg venous doppler is -ve, cxr is clear on lopressor 50mg bid, procardial xl 60mg daily, lisinopril 10mg bid, hydralazine bid continue metformin, prophylactic keppra, lipitor parieto-occipital hemorrhage with intraventricular extn has large posterior fossa arachnoid cyst compressing brain stem structures, mgmt per Nsx hemostable encourage po oral intake, oob to chair and mobilize as tolerated echo shows normal ef and wall motion is on haldol q4h prn for intermittent agitation, has encephalopathy sec to ICH- resolving will need rehab for dc plan, d/w case mgmt
[2019-11-17 14:46] LABS: Bacteria/HPF None Seen HPF (None Seen); Bilirubin Negative (Negative); Blood, Urine Trace (Negative); Clarity Clear (Clear); Glucose, Urine (Dipstick) Normal (Negative); Leukocyte Negative Leu/uL (Negative); Nitrite Negative (Negative); Protein, Urine (Dipstick) 30 mg/dL (Neg-Trace); Squamous Epithelial 0-3 HPF (0-3); Urobilinogen Normal mg/dL (Less than 2); WBC/HPF 0-3 HPF (0-3)
[2019-11-17 14:47] LABS: Urine Culture Reflex No No
[2019-11-17] MEDS: Atorvastatin Calcium 40 MG TAB PO SCH (20:45)
[2019-11-17] MEDS: HYDROcodone/Acetaminophen 5/325 mg Tablet PO PRN (20:47)
[2019-11-18] MEDS: Acetaminophen 325 MG TAB PO PRN ×2 (00:03→08:18)
[2019-11-18] MEDS: hydrALAZINE 20 MG/ML VIAL SLOW IVP PRN (00:05)
[2019-11-18] MEDS: Labetalol HCl 100 MG/20 ML VIAL SLOW IVP PRN ×4 (00:52→23:13)
[2019-11-18] MEDS ORDERED: NIFEdipine XL 30 MG TAB PO SCH (02:00)
[2019-11-18] MEDS: HYDROcodone/Acetaminophen 10/325 mg Tablet PO PRN ×3 (04:16→20:31)
[2019-11-18] MEDS: Metoprolol Tartrate 50 MG TAB PO SCH ×2 (04:17→15:40)
[2019-11-18 05:38] LABS: Hemoglobin 11.3 g/dL (14.0-18.0); Hypochromia SLIGHT = 6-15 cells (100X) (0-5/hpf); Lymphocytes 7 % (21-51); MDiff Complete? YES; Mean Corpuscular HGB CONC 34.6 g/dL (32.0-36.0); Mean Corpuscular Hemoglobin 31.2 pg (27.0-31.0); Mean Platelet Volume 7.2 fL (7.4-10.4); Monocytes 4 % (0-10); Neutrophil 89 % (42-75); Platelet Count 224 thou/uL (130-400); Platelet Morphology Comment Appears Adequate; RBC Distribution Width 11.5 % (11.5-14.5); Red Blood Cell (RBC) Count 3.62 mill/uL (4.70-6.10)
[2019-11-18 05:47] LABS: Anion Gap 13 mmol/L (10-20); BUN (Urea Nitrogen) 13 mg/dL (8.4-25.7); Calc. Creatinine Clearance 156 mL/min (70-130); Calcium 8.5 mg/dL (7.8-10.44); Carbon Dioxide 21 mmol/L (22-29); Chloride 103 mmol/L (98-107); Estimated GFR-MDRD Greater than 90; Glucose 120 mg/dL (70-105); Potassium 3.3 mmol/L (3.5-5.1); Sodium 134 mmol/L (136-145)
[2019-11-18] MEDS: Magnesium Oxide 400 MG TAB PO SCH (08:18)
[2019-11-18] MEDS: levETIRAcetam 500 MG TAB PO SCH (08:18)
[2019-11-18] MEDS: NIFEdipine XL 60 MG TAB PO SCH (08:18)
[2019-11-18] MEDS: Folic Acid 1 MG TAB PO SCH (08:18)
[2019-11-18] MEDS: Lisinopril 10 MG TAB PO SCH (08:18)
[2019-11-18] MEDS: hydrALAZINE 25 MG TAB PO SCH ×3 (08:19→20:32)
[2019-11-18] MEDS: Thiamine 100 MG TAB PO SCH (08:19)
[2019-11-18] MEDS: Multivitamin W/ Minerals 1 TAB PO SCH (08:19)
[2019-11-18] MEDS: metFORMIN 500 MG TAB PO SCH (08:19)
--- NOTE | 2019-11-18 08:29 | CT ---
PRELIMINARY REPORT/[facility]/AFTER HOURS PROCEDURE CT HEAD WITHOUT INTRAVENOUS CONTRAST: CLINICAL HISTORY: M60, patient is more agitated and complains of headache that is increasingly worse. TECHNIQUE: Axial computed tomography images of the head/brain without intravenous contrast. COMPARISON: None provided. FINDINGS BRAIN: Right posterior fossa cystic lesion measuring up to 7.8 cm. Acute intraparenchymal hemorrhage within the left occipital lobe measuring 6.5 x 3.3 cm in axial dimension with adjacent cerebral edema . VENTRICLES: Hydrocephalus involving the lateral ventricles and third ventricle. ORBITS: The orbits are unremarkable. SINUSES AND MASTOIDS: The paranasal sinuses and mastoid air cells are clear. SOFT TISSUES: No significant facial or scalp soft tissue swelling evident. No radiopaque foreign body is seen. BONES: No acute skull fracture. IMPRESSION: 1. Acute intraparenchymal hemorrhage within the left occipital lobe. Interval follow-up recommended. 2. Cystic mass within the right posterior fossa measuring up to 7.8 cm. This may be contributing to hydrocephalus within the lateral ventricles and third ventricle. 3. Further evaluation with MRI is suggested. ELECTRONICALLY SIGNED BY: Isreal Kaba M.D. Nov 18, 2019 3:05:25 AM SURVEILLANCE SENSOR OFFICER This report is intended for review by the ordering physician only, in accordance of law. If you recei ve this report in error, please call [facility] at [phone]. FINAL REPORT EMERGENT AFTER HOURS STUDY CT BRAIN NONCONTRAST: DATE: 11/18/2019. TIME: 2:33 a.m. HISTORY: A 59-year-old male with increasing headache. Followup intracranial hemorrhage. COMPARISON: Noncontrast CT of 11/11/2019. FINDINGS: Left paramedian posterior parietal lobe large intraaxial hematoma with local mass effect and mild muriel rounding vasogenic edema, distorting the posterior aspect of the left lateral ventricle. Size compar mitch is somewhat difficult because of differences in angulation of the slices [facility] and the current [facility]. The hematoma is measured as approximately 6.3 x 2.8 cm on the current CT slices. It has not increased in size, and is perhaps slightly smaller. The amount of intraventricul ar hemorrhage adjacent to the hematoma, within the left lateral ventricle, has definitely decreased. Again noted is the moderate ventriculomegaly involving the lateral and third ventricles. Small subacute infarction in the rosa m, slightly to the left of midline, is again noted (this had rest ricted diffusion on the MRI of 11/11/2019). Large right posterior fossa arachnoid cyst with chronic mass effect upon the cerebellum and brainstem, is again noted. No supratentorial midline shift. Mod erate chronic ischemic white matter changes of the cerebrum. Paranasal sinuses are grossly clear. N o acute calvarial fracture. No major disagreement with preliminary report by IMPRESSION: 1. Early involutional changes of the large acute/subacute left parietal intraaxial hematoma. 2. Interval decrease in the amount of adjacent intraventricular hematoma in the left lateral ventric le. 3. Hydrocephalus involving lateral and third ventricles, unchanged. 4. Subacute small lacunar infarction of rosa m. 5. Large right posterior fossa arachnoid cyst. SHYAM R CODE QA POS: OFF
--- NOTE | 2019-11-18 10:00 | PRG ---
DATE OF SERVICE: 11/18/2019 Mr. Marquis has now been hospitalized for 8 days for a left parieto-occipital hemorrhage. It is difficult to really tell if there is underlying vascular abnormality such as a left pericallosal arteriovenous malformation. Initial CTA and MRI suggested possible and a followup CTA perhaps due to suboptimal technique was ambiguous. Nevertheless, his hematoma is resolving. He does not have hydrocephalus. He has ventriculomegaly. The difference here of course being hydrocephalus, would oftentimes pretend more of a clinical picture. 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 He has had no symptoms for hydrocephalus or increased intracranial pressure prior to his hospitalization. At this point, I will repeat an MRI of the brain without and with contrast and get a formal angiogram at 4- to 6-week point following his bleed to allow the hematoma to resolve. I would recommend systolic blood pressure below 140 and I have echoed this in multiple notes. At this point, neurologically, he is stable. Headache that vacillates is going to be normal. Job ID: [id number]
--- NOTE | 2019-11-18 15:14 | PDOC.HOSPP ---
- Subjective Encounter Date: 11/18/19 Encounter Time: 10:15 Subjective: awake, responds well to verbal stimuli is moving all extremities has not amb much yet is eating better still low appetite. - Objective Vital Signs & Weight: Vital Signs (12 hours) Temp Pulse Resp BP BP Pulse Ox 11/18/19 14:46 105 H 152/75 H 11/18/19 13:50 102 H 150/77 H 11/18/19 11:03 99.7 F H 91 16 133/56 L 92 L 11/18/19 08:51 91 L 11/18/19 08:19 85 149/80 H 11/18/19 08:18 85 149/80 H 11/18/19 07:44 100.3 F H 85 16 149/80 H 91 L 11/18/19 06:03 84 160/78 H 11/18/19 04:41 99.5 F 86 16 159/83 H 94 L Weight Weight 245 lb 2.464 oz Most Recent Monitor Data Heart Rate from ECG 87 NIBP 136/75 NIBP BP-Mean 95 Respiration from ECG 22 SpO2 97 I&O: 11/17/19 11/18/19 11/19/19 06:59 06:59 06:59 Intake Total 390 560 Output Total 1000 200 Balance -610 360 Result Diagrams: 11/18/19 05:04 11/18/19 05:04 Additional Labs: Accuchecks 11/18/19 11/17/19 11/17/19 05:50 19:59 17:11 POC Glucose 134 H 137 H 135 H Hospitalist ROS - Medication Medications: Active Medications Generic Name Dose Route Start Last Admin Trade Name Freq PRN Reason Stop Dose Admin Acetaminophen 650 mg 11/10/19 20:44 11/18/19 08:18 Tylenol PO 650 mg Q4H PRN Administration Headache/Fever/Mild Pain (1-3) Acetaminophen 650 mg 11/14/19 22:59 11/14/19 23:04 Tylenol [place] 650 mg Q6H PRN Administration .FEVER Hydrocodone Bitart/Acetaminophen 1 tab 11/11/19 15:22 11/17/19 20:47 [place] 5/325 PO 1 tab Q4H PRN Administration Headache Hydrocodone Bitart/Acetaminophen 1 tab 11/12/19 09:16 11/15/19 20:37 [place] 10/325 PO 1 tab Q4H PRN Administration Moderate Pain (4-6) Hydrocodone Bitart/Acetaminophen 2 tab 11/12/19 09:16 11/18/19 13:49 [place] 10/325 PO 2 tab Q4H PRN Administration Severe Pain (7-10) Atorvastatin Calcium 40 mg 11/13/19 21:00 11/17/19 20:45 Lipitor PO 40 mg HS MITCHELL Administration Folic Acid 1 mg 11/15/19 09:00 11/18/19 08:18 Folvite PO 1 mg DAILY MITCHELL Administration Hydralazine HCl 10 mg 11/11/19 17:10 11/18/19 00:05 Apresoline SLOW IVP 10 mg Q15MIN PRN Administration Sbp Greater Than 140 Hydralazine HCl 50 mg 11/17/19 09:00 11/18/19 13:50 Apresoline PO 50 mg TID MITCHELL Administration Insulin Human Lispro 0 units 11/11/19 10:26 11/13/19 17:40 Humalog SC 2 units .MODERATE SLIDING SC PRN Administration Moderate Correctional Scale Iron/Minerals/Multivitamins 1 tab 11/15/19 09:00 11/18/19 08:19 Theragran M PO 1 tab DAILY MITCHELL Administration Labetalol HCl 10 mg 11/11/19 17:10 11/18/19 14:46 Normodyne SLOW IVP 2 ml Q15MIN PRN Administration SBP greater than 140 Lisinopril 10 mg 11/13/19 09:00 11/18/19 08:18 Zestril PO 10 mg BID MITCHELL Administration Magnesium Oxide 400 mg 11/15/19 09:00 11/18/19 08:18 Magnesium Oxide PO 400 mg DAILY MITCHELL Administration Metformin HCl 500 mg 11/13/19 08:00 11/18/19 08:19 Glucophage PO 500 mg QAM-WM MITCHELL Administration Metoprolol Tartrate 50 mg 11/13/19 04:00 11/18/19 04:17 Lopressor PO 50 mg 0400,1600 MITCHELL Administration Nifedipine 60 mg 11/18/19 09:00 11/18/19 08:18 Procardia Xl PO 60 mg DAILY MITCHELL Administration Ondansetron HCl 4 mg 11/10/19 20:44 11/13/19 08:07 Zofran IVP 4 mg Q6H PRN Administration Nausea/Vomiting Pantoprazole Sodium 40 mg 11/17/19 09:00 11/18/19 08:19 Protonix PO 40 mg DAILY MITCHELL Administration Sodium Chloride 10 ml 11/10/19 20:44 11/17/19 20:48 Flush - Normal Saline IVF 10 ml PRN PRN Administration Saline Flush Thiamine HCl 100 mg 11/15/19 09:00 11/18/19 08:19 Thiamine PO 100 mg DAILY MITCHELL Administration - Exam General Appearance: awake alert Eye: PERRL, anicteric sclera ENT: no oropharyngeal lesions, moist mucosa Neck: supple, no JVD Heart: RRR, no murmur Respiratory: no wheezes, no rales Gastrointestinal: soft, non-tender, non-distended, normal bowel sounds Extremities: no cyanosis, no edema Neurological - other findings: right hemiparesis with strength of around 4/5 Psychiatric: A&O x 3 Hosp A/P (1) ICH (intracerebral hemorrhage) Code(s): I61.9 - NONTRAUMATIC INTRACEREBRAL HEMORRHAGE, UNSPECIFIED Status: Acute Qualifiers: Intracerebral hemorrhage etiology: nontraumatic Cerebral hemorrhage location: cerebral hemisphere, cortical portion Laterality: left Qualified Code(s): I61.1 - Nontraumatic intracerebral hemorrhage in hemisphere, cortical (2) Hypertensive emergency Code(s): I16.1 - HYPERTENSIVE EMERGENCY Status: Resolved (3) Obesity (BMI 30.0-34.9) Code(s): E66.9 - OBESITY, UNSPECIFIED Status: Chronic (4) DM type 2 (diabetes mellitus, type 2) Status: Chronic Qualifiers: Diabetes mellitus assisted insulin use: without termite exterminator use (5) Encephalopathy acute Code(s): G93.40 - ENCEPHALOPATHY, UNSPECIFIED Status: Acute - Plan Off and on fever, blood cs x6 -ve, usg venous doppler is -ve, cxr is clear on lopressor 50mg bid, procardial xl 60mg daily, increase lisinopril from 10mg bid to 20mg bid and hydralazine from 50mg tid to 75mg tid (11/18/2019) continue metformin, prophylactic keppra, lipitor parieto-occipital hemorrhage with intraventricular extn and hydrocephalus has large posterior fossa arachnoid cyst compressing brain stem structures, mgmt per Nsx hemostable encourage po oral intake, oob to chair and mobilize as tolerated echo shows normal ef and wall motion has encephalopathy sec to ICH-resolving will need rehab for dc plan, d/w case mgmt May dc to rehab if accepted (neuro rehab in [place] is awaiting insurance approval)
[2019-11-18] MEDS: Lisinopril 20 MG TAB PO SCH (20:31)
[2019-11-18] MEDS: Atorvastatin Calcium 40 MG TAB PO SCH (20:32)
[2019-11-19] MEDS: HYDROcodone/Acetaminophen 10/325 mg Tablet PO PRN ×5 (01:29→19:41)
[2019-11-19] MEDS: Labetalol HCl 100 MG/20 ML VIAL SLOW IVP PRN ×5 (01:35→23:56)
[2019-11-19] MEDS: hydrALAZINE 20 MG/ML VIAL SLOW IVP PRN ×4 (02:52→10:04)
[2019-11-19] MEDS: Metoprolol Tartrate 50 MG TAB PO SCH ×2 (02:54→15:22)
[2019-11-19] MEDS: cloNIDine 0.2mg/24 Hour PATCH TD SCH (03:41)
[2019-11-19 06:49] LABS: Band 1 % (5-11); Eosinophils 1 % (0-10); Hemoglobin 11.5 g/dL (14.0-18.0); Lymphocytes 23 % (21-51); MDiff Complete? YES; Mean Corpuscular Hemoglobin 31.5 pg (27.0-31.0); Mean Corpuscular Volume 90.1 fL (78.0-98.0); Mean Platelet Volume 6.6 fL (7.4-10.4); Monocytes 10 % (0-10); Neutrophil 65 % (42-75); Platelet Count 248 thou/uL (130-400); Platelet Morphology Comment Appears Adequate; RBC Distribution Width 11.4 % (11.5-14.5); Red Blood Cell (RBC) Count 3.65 mill/uL (4.70-6.10); White Blood Cell (WBC) Count 11.5 thou/uL (4.8-10.8)
[2019-11-19 07:02] LABS: Anion Gap 12 mmol/L (10-20); BUN (Urea Nitrogen) 13 mg/dL (8.4-25.7); Calc. Creatinine Clearance 158 mL/min (70-130); Calcium 8.6 mg/dL (7.8-10.44); Carbon Dioxide 24 mmol/L (22-29); Chloride 102 mmol/L (98-107); Estimated GFR-MDRD Greater than 90; Glucose 115 mg/dL (70-105); Potassium 3.3 mmol/L (3.5-5.1); Sodium 135 mmol/L (136-145)
[2019-11-19] MEDS: Lisinopril 20 MG TAB PO SCH ×2 (07:59→20:30)
[2019-11-19] MEDS: NIFEdipine XL 60 MG TAB PO SCH (07:59)
[2019-11-19] MEDS: Folic Acid 1 MG TAB PO SCH (07:59)
[2019-11-19] MEDS: Multivitamin W/ Minerals 1 TAB PO SCH (07:59)
[2019-11-19] MEDS: Magnesium Oxide 400 MG TAB PO SCH (07:59)
[2019-11-19] MEDS: Thiamine 100 MG TAB PO SCH (07:59)
[2019-11-19] MEDS: hydrALAZINE 25 MG TAB PO SCH ×3 (07:59→20:30)
[2019-11-19] MEDS: metFORMIN 500 MG TAB PO SCH (07:59)
[2019-11-19] MEDS: Ondansetron PF 4 MG/2 ML Vial IVP PRN (11:54)
[2019-11-19] MEDS: Atorvastatin Calcium 40 MG TAB PO SCH (20:30)
--- NOTE | 2019-11-19 21:29 | PDOC.HOSPP ---
- Subjective Encounter Date: 11/19/19 Subjective: Doing ok. Primarily worried about his his belongings. - Objective Vital Signs & Weight: Vital Signs (12 hours) Temp Pulse Pulse Pulse Resp BP BP 11/19/19 19:43 99 F 77 18 11/19/19 15:29 98.1 F 89 9 L 11/19/19 14:15 93 89 153/76 H 11/19/19 13:44 89 135/60 11/19/19 12:49 11/19/19 12:48 11/19/19 11:55 100 168/76 H 11/19/19 10:58 98.7 F 88 16 11/19/19 10:04 86 170/76 H BP BP Pulse Ox 11/19/19 19:43 159/86 H 92 L 11/19/19 15:29 140/63 96 11/19/19 14:15 138/66 11/19/19 13:44 11/19/19 12:49 135/60 11/19/19 12:48 135/60 11/19/19 11:55 11/19/19 10:58 159/76 H 98 11/19/19 10:04 Weight Weight 241 lb 14.4 oz Most Recent Monitor Data Heart Rate from ECG 87 NIBP 136/75 NIBP BP-Mean 95 Respiration from ECG 22 SpO2 97 I&O: 11/18/19 11/19/19 11/20/19 06:59 06:59 06:59 Intake Total 560 1200 480 Output Total 200 825 725 Balance 360 375 -245 Result Diagrams: 11/19/19 06:33 11/19/19 06:33 Additional Labs: Accuchecks 11/19/19 11/19/19 11/19/19 20:17 16:25 11:00 POC Glucose 125 H 118 H 117 H 11/19/19 11/18/19 05:39 20:39 POC Glucose 110 132 H Hospitalist ROS - Medication Medications: Active Medications Generic Name Dose Route Start Last Admin Trade Name Freq PRN Reason Stop Dose Admin Acetaminophen 650 mg 11/10/19 20:44 11/18/19 08:18 Tylenol PO 650 mg Q4H PRN Administration Headache/Fever/Mild Pain (1-3) Acetaminophen 650 mg 11/14/19 22:59 11/14/19 23:04 Tylenol [place] 650 mg Q6H PRN Administration .FEVER Hydrocodone Bitart/Acetaminophen 1 tab 11/11/19 15:22 11/17/19 20:47 [place] 5/325 PO 1 tab Q4H PRN Administration Headache Hydrocodone Bitart/Acetaminophen 1 tab 11/12/19 09:16 11/15/19 20:37 [place] 10/325 PO 1 tab Q4H PRN Administration Moderate Pain (4-6) Hydrocodone Bitart/Acetaminophen 2 tab 11/12/19 09:16 11/19/19 19:41 [place] 10/325 PO 2 tab Q4H PRN Administration Severe Pain (7-10) Atorvastatin Calcium 40 mg 11/13/19 21:00 11/19/19 20:30 Lipitor PO 40 mg HS MITCHELL Administration Clonidine 0.2 mg 11/19/19 03:00 11/19/19 03:41 Tspxdwvf-Mhb-4 TD 11/26/19 02:59 0.2 mg NOW MITCHELL Administration Folic Acid 1 mg 11/15/19 09:00 11/19/19 07:59 Folvite PO 1 mg DAILY MITCHELL Administration Hydralazine HCl 10 mg 11/11/19 17:10 11/19/19 10:04 Apresoline SLOW IVP 10 mg Q15MIN PRN Administration Sbp Greater Than 140 Hydralazine HCl 75 mg 11/18/19 21:00 11/19/19 20:30 Apresoline PO 75 mg TID MITCHELL Administration Insulin Human Lispro 0 units 11/11/19 10:26 11/13/19 17:40 Humalog SC 2 units .MODERATE SLIDING SC PRN Administration Moderate Correctional Scale Iron/Minerals/Multivitamins 1 tab 11/15/19 09:00 11/19/19 07:59 Theragran M PO 1 tab DAILY MITCHELL Administration Labetalol HCl 10 mg 11/11/19 17:10 11/19/19 11:55 Normodyne SLOW IVP 2 ml Q15MIN PRN Administration SBP greater than 140 Lisinopril 20 mg 11/18/19 21:00 11/19/19 20:30 Zestril PO 20 mg BID MITCHELL Administration Magnesium Oxide 400 mg 11/15/19 09:00 11/19/19 07:59 Magnesium Oxide PO 400 mg DAILY MITCHELL Administration Metformin HCl 500 mg 11/13/19 08:00 11/19/19 07:59 Glucophage PO 500 mg QAM-WM MITCHELL Administration Metoprolol Tartrate 50 mg 11/13/19 04:00 11/19/19 15:22 Lopressor PO 50 mg 0400,1600 MITCHELL Administration Nifedipine 60 mg 11/18/19 09:00 11/19/19 07:59 Procardia Xl PO 60 mg DAILY MITCHELL Administration Ondansetron HCl 4 mg 11/10/19 20:44 11/19/19 11:54 Zofran IVP 4 mg Q6H PRN Administration Nausea/Vomiting Pantoprazole Sodium 40 mg 11/17/19 09:00 11/19/19 07:59 Protonix PO 40 mg DAILY MITCHELL Administration Sodium Chloride 10 ml 11/10/19 20:44 11/19/19 20:31 Flush - Normal Saline IVF 10 ml PRN PRN Administration Saline Flush Thiamine HCl 100 mg 11/15/19 09:00 11/19/19 07:59 Thiamine PO 100 mg DAILY MITCHELL Administration - Exam General Appearance: NAD, awake alert Neck: supple, symmetric, no JVD, no thyromegaly, no lymphadenopathy, no carotid bruit Heart: RRR, no murmur, no gallops, no rubs, normal peripheral pulses Respiratory: CTAB, no wheezes, no rales, no ronchi, normal chest expansion, no tachypnea, normal percussion Gastrointestinal: soft, non-tender, non-distended, normal bowel sounds, no palpable masses, no hepatomegaly, no splenomegaly, no bruit Extremities: no cyanosis, no clubbing, no edema Neurological: cranial nerve grossly intact, normal sensation to touch, no weakness, no focal deficits, no new deficit Musculoskeletal: normal tone Psychiatric: normal affect, normal behavior, A&O x 3 Hosp A/P (1) ICH (intracerebral hemorrhage) Code(s): I61.9 - NONTRAUMATIC INTRACEREBRAL HEMORRHAGE, UNSPECIFIED Status: Acute Qualifiers: Intracerebral hemorrhage etiology: nontraumatic Cerebral hemorrhage location: cerebral hemisphere, cortical portion Laterality: left Qualified Code(s): I61.1 - Nontraumatic intracerebral hemorrhage in hemisphere, cortical (2) Encephalopathy acute Code(s): G93.40 - ENCEPHALOPATHY, UNSPECIFIED Status: Resolved (3) DM type 2 (diabetes mellitus, type 2) Status: Chronic Qualifiers: Diabetes mellitus watermelon 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 Currently on: Procardia, Hydralazine, Lisinopril, Metoprolol, Catapress patch. Also has PRN's. Catapress started last night. Will continue. Generally improved and close to goal. Blood sugars ok. PT still recommending rehab. In process via CM.
[2019-11-20] MEDS: hydrALAZINE 20 MG/ML VIAL SLOW IVP PRN ×4 (00:28→16:14)
[2019-11-20] MEDS: HYDROcodone/Acetaminophen 10/325 mg Tablet PO PRN ×5 (00:50→21:53)
[2019-11-20] MEDS: cloNIDine 0.2mg/24 Hour PATCH TD SCH (02:36)
[2019-11-20] MEDS: Metoprolol Tartrate 50 MG TAB PO SCH ×2 (04:04→15:10)
[2019-11-20] MEDS: Acetaminophen 325 MG TAB PO PRN (04:54)
[2019-11-20] MEDS: Ondansetron PF 4 MG/2 ML Vial IVP PRN (05:13)
[2019-11-20 05:51] LABS: Band 2 % (5-11); Eosinophils 3 % (0-10); Hemoglobin 11.8 g/dL (14.0-18.0); Lymphocytes 18 % (21-51); MDiff Complete? YES; Mean Corpuscular HGB CONC 34.5 g/dL (32.0-36.0); Mean Corpuscular Hemoglobin 31.3 pg (27.0-31.0); Mean Corpuscular Volume 90.7 fL (78.0-98.0); Mean Platelet Volume 6.7 fL (7.4-10.4); Monocytes 9 % (0-10); Neutrophil 68 % (42-75); Platelet Count 306 thou/uL (130-400); Platelet Morphology Comment Appears Adequate; RBC Distribution Width 11.6 % (11.5-14.5); RBC Morphology Normal; Red Blood Cell (RBC) Count 3.76 mill/uL (4.70-6.10); White Blood Cell (WBC) Count 11.8 thou/uL (4.8-10.8)
[2019-11-20 05:54] LABS: Anion Gap 14 mmol/L (10-20); BUN (Urea Nitrogen) 13 mg/dL (8.4-25.7); Calc. Creatinine Clearance 161 mL/min (70-130); Calcium 8.7 mg/dL (7.8-10.44); Carbon Dioxide 24 mmol/L (22-29); Chloride 100 mmol/L (98-107); Estimated GFR-MDRD Greater than 90; Glucose 106 mg/dL (70-105); Potassium 3.3 mmol/L (3.5-5.1); Sodium 135 mmol/L (136-145)
[2019-11-20] MEDS ORDERED: cloNIDine 0.3mg/24 Hour PATCH TD SCH (09:00)
[2019-11-20] MEDS: Lisinopril 20 MG TAB PO SCH ×2 (09:10→20:23)
[2019-11-20] MEDS: NIFEdipine XL 60 MG TAB PO SCH (09:11)
[2019-11-20] MEDS: hydrALAZINE 25 MG TAB PO SCH ×3 (09:12→20:22)
[2019-11-20] MEDS: metFORMIN 500 MG TAB PO SCH (09:14)
[2019-11-20] MEDS ORDERED: Hydrochlorothiazide 25 MG TAB PO SCH (09:15)
[2019-11-20] MEDS ORDERED: Potassium Chloride 20 MEQ TAB PO SCH (09:15)
[2019-11-20] MEDS: Multivitamin W/ Minerals 1 TAB PO SCH (10:55)
[2019-11-20] MEDS: Folic Acid 1 MG TAB PO SCH (10:55)
[2019-11-20] MEDS: Thiamine 100 MG TAB PO SCH (10:55)
[2019-11-20] MEDS: Magnesium Oxide 400 MG TAB PO SCH (10:55)
--- NOTE | 2019-11-20 12:32 | PDOC.HOSPP ---
- Subjective Encounter Date: 11/20/19 Encounter Time: 12:30 Subjective: Reports some clear rhinorrhea. Otherwise, just frustrated. - Objective Vital Signs & Weight: Vital Signs (12 hours) Temp Pulse Resp BP BP Pulse Ox 11/20/19 11:35 159/76 H 98 11/20/19 11:20 74 16 189/84 H 90 L 11/20/19 10:04 157/79 H 11/20/19 09:12 76 170/82 H 11/20/19 09:11 76 170/82 H 11/20/19 09:10 170/82 H 11/20/19 08:00 98.7 F 76 18 170/82 H 97 11/20/19 04:00 98.7 F 78 18 147/69 H 97 11/20/19 01:12 89 144/59 H 11/20/19 00:50 82 169/79 H 11/20/19 00:31 78 189/99 H Weight Weight 242 lb 3.2 oz Most Recent Monitor Data Heart Rate from ECG 87 NIBP 136/75 NIBP BP-Mean 95 Respiration from ECG 22 SpO2 97 I&O: 11/19/19 11/20/19 11/21/19 06:59 06:59 06:59 Intake Total 1200 930 Output Total 825 1355 Balance 375 -425 Result Diagrams: 11/20/19 05:22 11/20/19 05:22 Additional Labs: Accuchecks 11/20/19 11/20/19 11/19/19 10:38 06:10 20:17 POC Glucose 111 H 121 H 125 H 11/19/19 16:25 POC Glucose 118 H Hospitalist ROS - Medication Medications: Active Medications Generic Name Dose Route Start Last Admin Trade Name Freq PRN Reason Stop Dose Admin Acetaminophen 650 mg 11/10/19 20:44 11/20/19 04:54 Tylenol PO 650 mg Q4H PRN Administration Headache/Fever/Mild Pain (1-3) Acetaminophen 650 mg 11/14/19 22:59 11/14/19 23:04 Tylenol [place] 650 mg Q6H PRN Administration .FEVER Hydrocodone Bitart/Acetaminophen 1 tab 11/11/19 15:22 11/17/19 20:47 [place] 5/325 PO 1 tab Q4H PRN Administration Headache Hydrocodone Bitart/Acetaminophen 1 tab 11/12/19 09:16 11/15/19 20:37 [place] 10/325 PO 1 tab Q4H PRN Administration Moderate Pain (4-6) Hydrocodone Bitart/Acetaminophen 2 tab 11/12/19 09:16 11/20/19 09:13 [place] 10/325 PO 2 tab Q4H PRN Administration Severe Pain (7-10) Atorvastatin Calcium 40 mg 11/13/19 21:00 11/19/19 20:30 Lipitor PO 40 mg HS MITCHELL Administration Clonidine 0.2 mg 11/19/19 03:00 11/20/19 02:36 Hiidxuef-Ghj-8 TD 11/26/19 02:59 Not Given NOW [facility] Clonidine 0.3 mg 11/20/19 09:00 11/20/19 10:29 Jqjclopm-Jnd-2 TD 0.3 mg Q7DAYS MITCHELL Administration Folic Acid 1 mg 11/15/19 09:00 11/20/19 10:55 Folvite PO Not Given DAILY [facility] Hydralazine HCl 10 mg 11/11/19 17:10 11/20/19 05:02 Apresoline SLOW IVP 10 mg Q15MIN PRN Administration Sbp Greater Than 140 Insulin Human Lispro 0 units 11/11/19 10:26 11/13/19 17:40 Humalog SC 2 units .MODERATE SLIDING SC PRN Administration Moderate Correctional Scale Iron/Minerals/Multivitamins 1 tab 11/15/19 09:00 11/20/19 10:55 Theragran M PO Not Given DAILY [facility] Labetalol HCl 10 mg 11/11/19 17:10 11/19/19 23:56 Normodyne SLOW IVP 2 ml Q15MIN PRN Administration SBP greater than 140 Lisinopril 20 mg 11/18/19 21:00 11/20/19 09:10 Zestril PO 20 mg BID MITCHELL Administration Magnesium Oxide 400 mg 11/15/19 09:00 11/20/19 10:55 Magnesium Oxide PO Not Given DAILY [facility] Metformin HCl 500 mg 11/13/19 08:00 11/20/19 09:14 Glucophage PO 500 mg QAM-WM MITCHELL Administration Metoprolol Tartrate 50 mg 11/13/19 04:00 11/20/19 04:04 Lopressor PO 50 mg 0400,1600 MIT[place]LL Administration Nifedipine 60 mg 11/18/19 09:00 11/20/19 09:11 Procardia Xl PO 60 mg DAILY MITCHELL Administration Ondansetron HCl 4 mg 11/10/19 20:44 11/20/19 05:13 Zofran IVP 4 mg Q6H PRN Administration Nausea/Vomiting Pantoprazole Sodium 40 mg 11/17/19 09:00 11/20/19 10:55 Protonix PO Not Given DAILY MITCHELL Sodium Chloride 10 ml 11/10/19 20:44 11/19/19 20:31 Flush - Normal Saline IVF 10 ml PRN PRN Administration Saline Flush Thiamine HCl 100 mg 11/15/19 09:00 11/20/19 10:55 Thiamine PO Not Given DAILY MITCHELL - Exam General Appearance: NAD, awake alert Eye: PERRL, anicteric sclera ENT: normocephalic atraumatic, no oropharyngeal lesions, moist mucosa Neck: supple, symmetric, no JVD, no thyromegaly, no lymphadenopathy, no carotid bruit Heart: RRR, no murmur, no gallops, no rubs, normal peripheral pulses Respiratory: CTAB, no wheezes, no rales, no ronchi, normal chest expansion, no tachypnea, normal percussion Gastrointestinal: soft, non-tender, non-distended, normal bowel sounds, no palpable masses, no hepatomegaly, no splenomegaly, no bruit Extremities: no cyanosis, no clubbing, no edema Skin: normal turgor Neurological: no weakness, no focal deficits Musculoskeletal: normal tone Psychiatric: A&O x 3 (Nursing reports some beligerence with attempting to give meds today.) Hosp A/P (1) ICH (intracerebral hemorrhage) Code(s): I61.9 - NONTRAUMATIC INTRACEREBRAL HEMORRHAGE, UNSPECIFIED Status: Acute Qualifiers: Intracerebral hemorrhage etiology: nontraumatic Cerebral hemorrhage location: cerebral hemisphere, cortical portion Laterality: left Qualified Code(s): I61.1 - Nontraumatic intracerebral hemorrhage in hemisphere, cortical (2) Encephalopathy acute Code(s): G93.40 - ENCEPHALOPATHY, UNSPECIFIED Status: Resolved (3) DM type 2 (diabetes mellitus, type 2) Status: Chronic Qualifiers: Diabetes mellitus chcf insulin use: without chcf use (4) Obesity (BMI 30.0-34.9) Code(s): E66.9 - OBESITY, UNSPECIFIED Status: Chronic (5) Hypertensive emergency Code(s): I16.1 - HYPERTENSIVE EMERGENCY Status: Resolved (6) Arachnoid cyst Code(s): G93.0 - CEREBRAL CYSTS Status: Acute - Plan Aggressively working on BP control. Currently on: Procardia, Hydralazine, Lisinopril, Metoprolol, Catapress patch. Also has PRN's. Catapress started last night. Adding HCTZ. Increasing Hydralazine to max dose. He was resistant to taking meds and was a little belligerent with the nurses trying to give him meds today. Blood sugars ok. PT still recommending rehab. Does not appear that he has had PT for a few days. Will reconsult to ensure they are coming by. Has been approved by the doc at a neuro rehab in [place]. Awainting insurance approval. In process via JAYY.
[2019-11-20] MEDS: Labetalol HCl 100 MG/20 ML VIAL SLOW IVP PRN ×2 (12:35→18:40)
[2019-11-20] MEDS: Atorvastatin Calcium 40 MG TAB PO SCH (20:22)
[2019-11-21] MEDS: cloNIDine 0.2mg/24 Hour PATCH TD SCH (03:43)
[2019-11-21] MEDS: Metoprolol Tartrate 50 MG TAB PO SCH ×2 (03:46→16:41)
[2019-11-21] MEDS: HYDROcodone/Acetaminophen 10/325 mg Tablet PO PRN ×4 (03:47→20:49)
[2019-11-21 05:12] LABS: Eosinophils 3 % (0-10); Hemoglobin 12.2 g/dL (14.0-18.0); Lymphocytes 16 % (21-51); MDiff Complete? YES; Mean Corpuscular HGB CONC 34.7 g/dL (32.0-36.0); Mean Corpuscular Hemoglobin 31.3 pg (27.0-31.0); Mean Corpuscular Volume 90.3 fL (78.0-98.0); Mean Platelet Volume 6.4 fL (7.4-10.4); Monocytes 2 % (0-10); Neutrophil 79 % (42-75); Platelet Count 273 thou/uL (130-400); Platelet Morphology Comment Appears Adequate; RBC Distribution Width 11.5 % (11.5-14.5); Red Blood Cell (RBC) Count 3.89 mill/uL (4.70-6.10); White Blood Cell (WBC) Count 11.4 thou/uL (4.8-10.8)
[2019-11-21 05:38] LABS: Anion Gap 15 mmol/L (10-20); BUN (Urea Nitrogen) 12 mg/dL (8.4-25.7); Calc. Creatinine Clearance 163 mL/min (70-130); Calcium 8.8 mg/dL (7.8-10.44); Carbon Dioxide 23 mmol/L (22-29); Chloride 98 mmol/L (98-107); Estimated GFR-MDRD Greater than 90; Glucose 101 mg/dL (70-105); Potassium 3.2 mmol/L (3.5-5.1); Sodium 133 mmol/L (136-145)
[2019-11-21] MEDS ORDERED: Potassium Chloride 20 MEQ TAB PO SCH (07:45)
[2019-11-21] MEDS: hydrALAZINE 25 MG TAB PO SCH ×3 (08:25→20:50)
[2019-11-21] MEDS: NIFEdipine XL 60 MG TAB PO SCH (08:26)
[2019-11-21] MEDS: Folic Acid 1 MG TAB PO SCH (08:27)
[2019-11-21] MEDS: Thiamine 100 MG TAB PO SCH (08:27)
[2019-11-21] MEDS: Multivitamin W/ Minerals 1 TAB PO SCH (08:28)
[2019-11-21] MEDS: Lisinopril 20 MG TAB PO SCH ×2 (08:28→20:50)
[2019-11-21] MEDS: Magnesium Oxide 400 MG TAB PO SCH (08:28)
[2019-11-21] MEDS: metFORMIN 500 MG TAB PO SCH (08:28)
[2019-11-21] MEDS: Hydrochlorothiazide 25 MG TAB PO SCH (08:28)
[2019-11-21 09:56] VITALS: BMI 31.9
[2019-11-21] MEDS: Sodium Chloride 0.65% Nasal 44 ML BOT EA NARE PRN ×2 (14:44→23:51)
[2019-11-21] MEDS: Atorvastatin Calcium 40 MG TAB PO SCH (20:50)
--- NOTE | 2019-11-21 21:14 | PDOC.HOSPP ---
- Subjective Subjective: Doing ok. Continues to have some problems with headaches. is present today. She reports he is having some problem being stuck in the room too much. He sometimes wakes and forgets where he is and wants to go to work. - Objective Vital Signs & Weight: Vital Signs (12 hours) Temp Pulse Pulse Pulse Resp BP BP 11/21/19 20:50 80 149/78 H 11/21/19 20:24 97.7 F 80 14 11/21/19 17:40 11/21/19 15:45 98.1 F 81 20 11/21/19 14:45 66 164/78 H 11/21/19 14:05 91 91 164/78 H 11/21/19 11:18 98.2 F 66 20 BP BP BP Pulse Ox 11/21/19 20:50 11/21/19 20:24 143/81 H 97 11/21/19 17:40 137/79 11/21/19 15:45 158/83 H 97 11/21/19 14:45 11/21/19 14:05 161/80 H 11/21/19 11:18 142/70 H 96 Weight Admit Weight 239 lb 1.6 oz Weight 242 lb 3.2 oz Most Recent Monitor Data Heart Rate from ECG 87 NIBP 136/75 NIBP BP-Mean 95 Respiration from ECG 22 SpO2 97 I&O: 11/20/19 11/21/19 11/22/19 06:59 06:59 06:59 Intake Total 930 240 Output Total 1051 1675 Balance -425 -1671 240 Result Diagrams: 11/21/19 04:48 11/21/19 04:48 Additional Labs: Accuchecks 11/21/19 11/21/19 11/21/19 19:40 16:42 10:32 POC Glucose 122 H 115 H 137 H 11/21/19 11/18/19 11/18/19 06:14 16:38 10:23 POC Glucose 100 142 H 129 H Hospitalist ROS - Medication Medications: Active Medications Generic Name Dose Route Start Last Admin Trade Name Freq PRN Reason Stop Dose Admin Acetaminophen 650 mg 11/10/19 20:44 11/20/19 04:54 Tylenol PO 650 mg Q4H PRN Administration Headache/Fever/Mild Pain (1-3) Acetaminophen 650 mg 11/14/19 22:59 11/14/19 23:04 Tylenol [place] 650 mg Q6H PRN Administration .FEVER Hydrocodone Bitart/Acetaminophen 1 tab 11/12/19 09:16 11/21/19 20:49 [place] 10/325 PO 1 tab Q4H PRN Administration Moderate Pain (4-6) Hydrocodone Bitart/Acetaminophen 2 tab 11/12/19 09:16 11/21/19 14:47 [place] 10/325 PO 2 tab Q4H PRN Administration Severe Pain (7-10) Atorvastatin Calcium 40 mg 11/13/19 21:00 11/21/19 20:50 Lipitor PO 40 mg HS MITCHELL Administration Clonidine 0.3 mg 11/20/19 09:00 11/20/19 10:29 Euppnqcv-Kak-3 TD 0.3 mg Q7DAYS MITCHELL Administration Folic Acid 1 mg 11/15/19 09:00 11/21/19 08:27 Folvite PO 1 mg DAILY MITCHELL Administration Hydralazine HCl 10 mg 11/11/19 17:10 11/20/19 16:14 Apresoline SLOW IVP 10 mg Q15MIN PRN Administration Sbp Greater Than 140 Hydralazine HCl 100 mg 11/20/19 15:00 11/21/19 20:50 Apresoline PO 100 mg TID MITCHELL Administration Hydrochlorothiazide 25 mg 11/21/19 09:00 11/21/19 08:28 Hydrochlorothiazide PO 25 mg DAILY MITCHELL Administration Insulin Human Lispro 0 units 11/11/19 10:26 11/13/19 17:40 Humalog SC 2 units .MODERATE SLIDING SC PRN Administration Moderate Correctional Scale Iron/Minerals/Multivitamins 1 tab 11/15/19 09:00 11/21/19 08:28 Theragran M PO 1 tab DAILY MITCHELL Administration Labetalol HCl 10 mg 11/11/19 17:10 11/20/19 18:40 Normodyne SLOW IVP 2 ml Q15MIN PRN Administration SBP greater than 140 Lisinopril 20 mg 11/18/19 21:00 11/21/19 20:50 Zestril PO 20 mg BID MITCHELL Administration Magnesium Oxide 400 mg 11/15/19 09:00 11/21/19 08:28 Magnesium Oxide PO 400 mg DAILY MITCHELL Administration Metformin HCl 500 mg 11/13/19 08:00 11/21/19 08:28 Glucophage PO 500 mg QAM-WM MITCHELL Administration Metoprolol Tartrate 50 mg 11/13/19 04:00 11/21/19 16:41 Lopressor PO 50 mg 0400,1600 MITCHELL Administration Nifedipine 60 mg 11/18/19 09:00 11/21/19 08:26 Procardia Xl PO 60 mg DAILY [place]LL Administration Ondansetron HCl 4 mg 11/10/19 20:44 11/20/19 05:13 Zofran IVP 4 mg Q6H PRN Administration Nausea/Vomiting Pantoprazole Sodium 40 mg 11/17/19 09:00 11/21/19 08:28 Protonix PO 40 mg DAILY MITCHELL Administration Sodium Chloride 10 ml 11/10/19 20:44 11/20/19 20:23 Flush - Normal Saline IVF 10 ml PRN PRN Administration Saline Flush Sodium Chloride 1 ml 11/21/19 09:45 11/21/19 14:44 [place] Nasal [place] 0.65% EA NARE 1 each TIDPRN PRN Administration Nasal Congestion Thiamine HCl 100 mg 11/15/19 09:00 11/21/19 08:27 Thiamine PO 100 mg DAILY MITCHELL Administration - Exam General Appearance: NAD, awake alert Heart: RRR, no murmur, no gallops, no rubs, normal peripheral pulses Respiratory: CTAB, no wheezes, no rales, no ronchi, normal chest expansion, no tachypnea, normal percussion Gastrointestinal: soft, non-tender, non-distended, normal bowel sounds, no palpable masses, no hepatomegaly, no splenomegaly, no bruit Extremities: no cyanosis, no clubbing, no edema Musculoskeletal: normal tone Psychiatric: normal affect Hosp A/P (1) ICH (intracerebral hemorrhage) Code(s): I61.9 - NONTRAUMATIC INTRACEREBRAL HEMORRHAGE, UNSPECIFIED Status: Acute Qualifiers: Intracerebral hemorrhage etiology: nontraumatic Cerebral hemorrhage location: cerebral hemisphere, cortical portion Laterality: left Qualified Code(s): I61.1 - Nontraumatic intracerebral hemorrhage in hemisphere, cortical (2) Encephalopathy acute Code(s): G93.40 - ENCEPHALOPATHY, UNSPECIFIED Status: Resolved (3) DM type 2 (diabetes mellitus, type 2) Status: Chronic Qualifiers: Diabetes mellitus chcf insulin use: without intermediate designer use (4) Obesity (BMI 30.0-34.9) Code(s): E66.9 - OBESITY, UNSPECIFIED Status: Chronic (5) Hypertensive emergency Code(s): I16.1 - HYPERTENSIVE EMERGENCY Status: Resolved (6) Arachnoid cyst Code(s): G93.0 - CEREBRAL CYSTS Status: Acute - Plan Aggressively working on BP control. Currently on: Procardia, Hydralazine, Lisinopril, Metoprolol, Catapress patch, HCTA. Also has PRN's. He was resistant to taking meds and was a little belligerent with the nurses trying to give him meds yesterday. Blood sugars ok. PT still recommending rehab. Have liberated PT to work with him more. The tight limitations on the BP have limited them. Has been approved by the doc at a neuro rehab in [place]. Awainting insurance approval. In process via JAYY.
[2019-11-21] MEDS: Ondansetron PF 4 MG/2 ML Vial IVP PRN (23:46)
[2019-11-22] MEDS: Metoprolol Tartrate 50 MG TAB PO SCH ×2 (04:37→15:54)
[2019-11-22 05:17] LABS: Band 2 % (5-11); Hemoglobin 12.6 g/dL (14.0-18.0); Hypochromia SLIGHT = 6-15 cells (100X) (0-5/hpf); Lymphocytes 16 % (21-51); MDiff Complete? YES; Mean Corpuscular HGB CONC 34.2 g/dL (32.0-36.0); Mean Corpuscular Hemoglobin 30.8 pg (27.0-31.0); Mean Corpuscular Volume 89.9 fL (78.0-98.0); Mean Platelet Volume 6.5 fL (7.4-10.4); Monocytes 4 % (0-10); Neutrophil 78 % (42-75); Platelet Count 355 thou/uL (130-400); Platelet Morphology Comment Appears Adequate; RBC Distribution Width 11.5 % (11.5-14.5); Red Blood Cell (RBC) Count 4.09 mill/uL (4.70-6.10); White Blood Cell (WBC) Count 11.8 thou/uL (4.8-10.8)
[2019-11-22 05:18] LABS: Anion Gap 12 mmol/L (10-20); BUN (Urea Nitrogen) 13 mg/dL (8.4-25.7); Calc. Creatinine Clearance 151 mL/min (70-130); Calcium 9.2 mg/dL (7.8-10.44); Carbon Dioxide 27 mmol/L (22-29); Chloride 98 mmol/L (98-107); Estimated GFR-MDRD Greater than 90; Glucose 121 mg/dL (70-105); Potassium 3.3 mmol/L (3.5-5.1); Sodium 134 mmol/L (136-145)
[2019-11-22] MEDS ORDERED: Potassium Chloride 20 MEQ TAB PO SCH (08:15)
[2019-11-22] MEDS: Acetaminophen 325 MG TAB PO PRN ×2 (10:40→21:36)
[2019-11-22] MEDS: NIFEdipine XL 60 MG TAB PO SCH (10:41)
[2019-11-22] MEDS: hydrALAZINE 25 MG TAB PO SCH ×3 (10:41→21:35)
[2019-11-22] MEDS: metFORMIN 500 MG TAB PO SCH (10:41)
[2019-11-22] MEDS: Folic Acid 1 MG TAB PO SCH (10:41)
[2019-11-22] MEDS: Thiamine 100 MG TAB PO SCH (10:42)
[2019-11-22] MEDS: Hydrochlorothiazide 25 MG TAB PO SCH (10:42)
[2019-11-22] MEDS: Lisinopril 20 MG TAB PO SCH ×2 (10:42→21:35)
[2019-11-22] MEDS: Magnesium Oxide 400 MG TAB PO SCH (10:42)
[2019-11-22] MEDS: Multivitamin W/ Minerals 1 TAB PO SCH (10:42)
--- NOTE | 2019-11-22 16:30 | PDOC.HOSPP ---
- Subjective Subjective: Frustrated with nursing regarding his desire to keep his door closed. Nursing prefers to be able to watch him to be available when he gets up on his own. Says the headaches aren't too bad, but still present. - Objective Vital Signs & Weight: Vital Signs (12 hours) Temp Pulse Resp BP BP BP Pulse Ox 11/22/19 15:54 82 11/22/19 15:14 98.3 F 82 16 132/74 95 11/22/19 11:47 98 F 66 16 144/79 H 99 11/22/19 10:42 149/78 H 11/22/19 10:41 68 11/22/19 07:23 99.8 F H 68 18 142/79 H 94 L Weight Admit Weight 239 lb 1.6 oz Weight 228 lb Most Recent Monitor Data Heart Rate from ECG 87 NIBP 136/75 NIBP BP-Mean 95 Respiration from ECG 22 SpO2 97 I&O: 11/21/19 11/22/19 11/23/19 06:59 06:59 06:59 Intake Total 240 740 Output Total 1675 Balance -1675 240 740 Result Diagrams: 11/22/19 04:39 11/22/19 04:39 Additional Labs: Accuchecks 11/22/19 11/22/19 11/21/19 10:47 06:09 19:40 POC Glucose 137 H 123 H 122 H 11/21/19 16:42 POC Glucose 115 H Hospitalist ROS - Medication Medications: Active Medications Generic Name Dose Route Start Last Admin Trade Name Freq PRN Reason Stop Dose Admin Acetaminophen 650 mg 11/10/19 20:44 11/22/19 10:40 Tylenol PO 650 mg Q4H PRN Administration Headache/Fever/Mild Pain (1-3) Acetaminophen 650 mg 11/14/19 22:59 11/14/19 23:04 Tylenol MI 650 mg Q6H PRN Administration .FEVER Atorvastatin Calcium 40 mg 11/13/19 21:00 11/21/19 20:50 Lipitor PO 40 mg HS MITCHELL Administration Clonidine 0.3 mg 11/20/19 09:00 11/20/19 10:29 Jmbndfbt-Prb-1 TD 0.3 mg Q7DAYS MITCHELL Administration Folic Acid 1 mg 11/15/19 09:00 11/22/19 10:41 Folvite PO 1 mg DAILY MITCHELL Administration Hydralazine HCl 10 mg 11/11/19 17:10 11/20/19 16:14 Apresoline SLOW IVP 10 mg Q15MIN PRN Administration Sbp Greater Than 140 Hydralazine HCl 100 mg 11/20/19 15:00 11/22/19 15:54 Apresoline PO 100 mg TID MITCHELL Administration Hydrochlorothiazide 25 mg 11/21/19 09:00 11/22/19 10:42 Hydrochlorothiazide PO 25 mg DAILY MITCHELL Administration Insulin Human Lispro 0 units 11/11/19 10:26 11/13/19 17:40 Humalog SC 2 units .MODERATE SLIDING SC PRN Administration Moderate Correctional Scale Iron/Minerals/Multivitamins 1 tab 11/15/19 09:00 11/22/19 10:42 Theragran M PO 1 tab DAILY MITCHELL Administration Labetalol HCl 10 mg 11/11/19 17:10 11/20/19 18:40 Normodyne SLOW IVP 2 ml Q15MIN PRN Administration SBP greater than 140 Lisinopril 20 mg 11/18/19 21:00 11/22/19 10:42 Zestril PO 20 mg BID MITCHELL Administration Magnesium Oxide 400 mg 11/15/19 09:00 11/22/19 10:42 Magnesium Oxide PO 400 mg DAILY MITCHELL Administration Metformin HCl 500 mg 11/13/19 08:00 11/22/19 10:41 Glucophage PO 500 mg QAM-WM MITCHELL Administration Metoprolol Tartrate 50 mg 11/13/19 04:00 11/22/19 15:54 Lopressor PO 50 mg 0400,1600 MITCHELL Administration Nifedipine 60 mg 11/18/19 09:00 11/22/19 10:41 Procardia Xl PO 60 mg DAILY MITCHELL Administration Ondansetron HCl 4 mg 11/10/19 20:44 11/21/19 23:46 Zofran IVP 4 mg Q6H PRN Administration Nausea/Vomiting Pantoprazole Sodium 40 mg 11/17/19 09:00 11/22/19 10:42 Protonix PO 40 mg DAILY MITCHELL Administration Sodium Chloride 10 ml 11/10/19 20:44 11/20/19 20:23 Flush - Normal Saline IVF 10 ml PRN PRN Administration Saline Flush Sodium Chloride 1 ml 11/21/19 09:45 11/21/19 23:51 [place] Nasal [place] 0.65% EA NARE 1 each TIDPRN PRN Administration Nasal Congestion Thiamine HCl 100 mg 11/15/19 09:00 11/22/19 10:42 Thiamine PO 100 mg DAILY MITCHELL Administration - Exam General Appearance: NAD, awake alert Heart: RRR, no murmur, no gallops, no rubs, normal peripheral pulses Respiratory: CTAB, no wheezes, no rales, no ronchi, normal chest expansion, no tachypnea, normal percussion Gastrointestinal: soft, non-tender, non-distended, normal bowel sounds, no palpable masses, no hepatomegaly, no splenomegaly, no bruit Extremities: no cyanosis, no clubbing, no edema Musculoskeletal: normal tone Psychiatric - other findings: Generally nml convesation. He does get frustrated at times. Hosp A/P (1) ICH (intracerebral hemorrhage) Code(s): I61.9 - NONTRAUMATIC INTRACEREBRAL HEMORRHAGE, UNSPECIFIED Status: Acute Qualifiers: Intracerebral hemorrhage etiology: nontraumatic Cerebral hemorrhage location: cerebral hemisphere, cortical portion Laterality: left Qualified Code(s): I61.1 - Nontraumatic intracerebral hemorrhage in hemisphere, cortical (2) Encephalopathy acute Code(s): G93.40 - ENCEPHALOPATHY, UNSPECIFIED Status: Resolved (3) DM type 2 (diabetes mellitus, type 2) Status: Chronic Qualifiers: Diabetes mellitus chcf insulin use: without chcf use (4) Obesity (BMI 30.0-34.9) Code(s): E66.9 - OBESITY, UNSPECIFIED Status: Chronic (5) Hypertensive emergency Code(s): I16.1 - HYPERTENSIVE EMERGENCY Status: Resolved (6) Arachnoid cyst Code(s): G93.0 - CEREBRAL CYSTS Status: Acute - Plan Aggressively working on BP control. Currently on: Procardia, Hydralazine, Lisinopril, Metoprolol, Catapress patch, HCTA. Also has PRN's. Better overall. Blood sugars ok. PT still recommending rehab. Have liberated PT to work with him more. The tight limitations on the BP have limited them. Has been approved by the doc at a neuro rehab in [place]. Awaiting insurance approval. In process via [facility].
[2019-11-22] MEDS: Atorvastatin Calcium 40 MG TAB PO SCH (21:35)
[2019-11-23 04:47] VITALS: TEMP 97.8
[2019-11-23 05:33] LABS: Anion Gap 12 mmol/L (10-20); BUN (Urea Nitrogen) 14 mg/dL (8.4-25.7); Calc. Creatinine Clearance 145 mL/min (70-130); Calcium 9.1 mg/dL (7.8-10.44); Carbon Dioxide 26 mmol/L (22-29); Chloride 100 mmol/L (98-107); Eosinophils 1 % (0-10); Estimated GFR-MDRD Greater than 90; Glucose 133 mg/dL (70-105); Hemoglobin 12.4 g/dL (14.0-18.0); Lymphocytes 26 % (21-51); MDiff Complete? YES; Mean Corpuscular Hemoglobin 30.9 pg (27.0-31.0); Mean Corpuscular Volume 90.9 fL (78.0-98.0); Mean Platelet Volume 6.7 fL (7.4-10.4); Monocytes 7 % (0-10); Neutrophil 66 % (42-75); Platelet Count 374 thou/uL (130-400); Platelet Morphology Comment Appears Adequate; Potassium 3.5 mmol/L (3.5-5.1); RBC Distribution Width 11.6 % (11.5-14.5); Red Blood Cell (RBC) Count 4.02 mill/uL (4.70-6.10); Sodium 134 mmol/L (136-145); White Blood Cell (WBC) Count 12.1 thou/uL (4.8-10.8)
[2019-11-23] MEDS: Metoprolol Tartrate 50 MG TAB PO SCH (06:18)
[2019-11-23] MEDS: NIFEdipine XL 60 MG TAB PO SCH (09:45)
[2019-11-23] MEDS: Lisinopril 20 MG TAB PO SCH (09:46)
[2019-11-23] MEDS: Folic Acid 1 MG TAB PO SCH (09:46)
[2019-11-23] MEDS: Hydrochlorothiazide 25 MG TAB PO SCH (09:46)
[2019-11-23] MEDS: metFORMIN 500 MG TAB PO SCH (09:46)
[2019-11-23] MEDS: Acetaminophen 325 MG TAB PO PRN (09:48)
[2019-11-23] MEDS: Magnesium Oxide 400 MG TAB PO SCH (09:48)
[2019-11-23] MEDS: Thiamine 100 MG TAB PO SCH (09:48)
[2019-11-23] MEDS: Multivitamin W/ Minerals 1 TAB PO SCH (09:48)
[2019-11-23 09:51] VITALS: BP 139/71
--- NOTE | 2019-11-23 09:51 | DIS ---
DATE OF ADMISSION: 11/10/2019 DATE OF DISCHARGE: 11/23/2019 DISCHARGE DIAGNOSES: 1. Intracerebral hemorrhage. 2. Acute encephalopathy. 3. Hypertensive emergency. 4. Diabetes mellitus. 5. Chronic arachnoid cyst. 6. Obesity. HISTORY OF PRESENT ILLNESS: This patient is a 59-year-old male, who presented to the hospital initially through the emergency department and was admitted to the Neurosurgical Service for altered mental status, confusion, and paresthesias of the left upper extremity. He had a left-sided intracranial hemorrhage and extension into the ventricles, but no hydrocephalus. Therefore, there was no neurosurgical intervention entertained. The patient was admitted to the ICU on a Cardene drip for blood pressure control. HOSPITAL COURSE: The patient was followed by Neurosurgery, Internal Medicine, Pulmonary/Critical Care. Once the patient's blood pressure had managed to substantially improve, he was able to come out of the ICU to the Stroke Unit, where he continued to work with Physical Therapy and was felt to be a good candidate for rehab. The patient is actually from the [facility] and those facilities were pursued and ultimately, he has been accepted to transfer there. During this hospital stay, the patient had adjustments of his blood pressure medications in order to achieve adequate blood pressure control with oral medications with the desired goal of a systolic below 140. It has taken numerous medications to get close to that goal. The patient has had echocardiogram, which revealed EF of 60% to 65%, otherwise largely unremarkable. He had a CT scan of the [place] with angiography showing the large intraparenchymal hemorrhage within the left parieto-occipital lobe with surrounding edema and mass effect on the adjacent sulci, small amounts of intraventricular extension into the posterior horn of the left lateral ventricle, which was unchanged from the initial imaging. Again, there was no indication for neurosurgical intervention. Subsequent repeat CT showed early involutional changes of the large subacute left parietal intra-axial hematoma, decrease in the amount of adjacent intraventricular hematoma in the left lateral ventricle, hydrocephalus involving the lateral third ventricles unchanged, subacute small lacunar infarction in the rosa m, and large right posterior fossa arachnoid cyst which is felt to be chronic. The patient did experience some headaches, which were not unexpected given the clinical scenario. DISCHARGE PHYSICAL EXAMINATION: VITAL SIGNS: On the day of discharge temperature 97.8, pulse 66, respirations 16, O2 saturation 95% on room air, and blood pressure 127/78. GENERAL: He is awake, alert, pleasant, and cooperative. HEART: Regular rate and rhythm. LUNGS: Clear bilaterally. ABDOMEN: Benign. EXTREMITIES: No cyanosis, clubbing, or edema. DISPOSITION: The patient will be discharged to [facility] in stable condition. He will be on a heart-healthy diabetic diet with chopped foods and thin liquids. He will have occupational therapy, physical therapy, and speech therapy. MEDICATIONS: Include: 1. Metformin 500 mg q.a.m. 2. Clonidine patch 0.3 mg q.7 days. 3. Thiamine 100 mg daily. 4. Rewey nasal spray 1 spray per nostril t.i.d. p.r.n. 5. Protonix 40 mg daily. 6. Nifedipine XL 60 mg daily. 7. Multivitamin 1 p.o. daily. 8. Metoprolol 50 mg p.o. b.i.d. 9. Magnesium oxide 400 mg daily. 10. Zestril 20 mg b.i.d. 11. Hydrochlorothiazide 25 mg p.o. daily. 12. Folic acid 1 mg daily. 13. Lipitor 40 mg at bedtime. 14. Tylenol 650 q.4 hours p.r.n. DISCHARGE INSTRUCTIONS: He is to follow up with a provider in the [place] area and he can return to the hospital anytime he should have the need to do so. TIME SPENT: Total time in discharge activities was 31 minutes. Job ID: [id number]
[2019-11-23] MEDS: hydrALAZINE 25 MG TAB PO SCH (10:46)
--- NOTE | 2019-11-24 20:28 | PQF ---
[employer] Crystal Reports Winform MarleneTATUMZOILA DAVID R MD [id number] [address] [place] [address] [id number] CLINICAL DOCUMENTATION CLARIFICATION FORM: POST DISCHARGE Addendum to original discharge summary date: ____ Late entry note date: __ DATE: 10/24/19 ATTN: Erlin Jimenez Please exercise your independent, professional judgment in responding to the clarification form. Clinical indicators are provided on the bottom of this form for your review Can you please further clarify the condition being treated and evaluated? Please check appropriate box(s): [ ] Cerebral Edema [ ] Cerebral compression [ ] Abnormal CT findings [ ] Other diagnosis please specify [ ] Unable to determine In addition, please specify: Present on Admission (POA): [ ] Yes [ ] No [ ] Unable to determine For continuity of documentation, please document condition throughout progress notes and discharge summary. Thank You. CLINICAL INDICATORS - SIGNS / SYMPTOMS / LABS CAT Scan Report pg.1 11/14- large intraparenchymal hemorrhage within the left parieto-occipital lobe with surrounding edema and mass effect upon the adjacent sulci Brain CT 11/18 pg.1- acute intraparenchymal hemorrhage within the left occipital lobe measuring 6.5 x3.3cm in axial dimension with adjust cerebral edema DS pg.1- admitted to the neurosurgical service for altered mental status, confusion and paresthesias RISK FACTORS Hypertension- H and P pg.1 DM- H and P pg.1 Intracranial Hemorrhage Hypertensive emergency- Hospitalist PN 11/15 TREATMENTS: Neurology Consult 11/[address] 11/11 Brain MRI 11/11 Dexamethasone (Decadron) 4mg IV) 11/13 Diazepam (Valium) 10mg PO- FEB 01 IV fluids- FEB 01 (This form is maintained as a part of the permanent medical record) 2014 [employer]. All Rights Reserved [email or web address] [not provided] MTDD
== END 2019-11-23 11:01 | DRG 64 ==
LOC: ERS 18:47 → CCU 20:12 → 2SE 11-16 08:56
PROVIDERS: ADMIT Surgery; ATTEND Surgery
PROC: B030ZZZ Magnetic Resonance Imaging (MRI) of Brain (ICD-10-PCS; principal; 2019-11-11)
PROC: B020ZZZ Computerized Tomography (CT Scan) of Brain (ICD-10-PCS; 2019-11-11)
DX: I61.1 Nontraumatic intracerebral hemorrhage in hemisphere, cortical (principal); G93.6 Cerebral edema; I16.1 Hypertensive emergency; G93.49 Other encephalopathy; R29.703 NIHSS score 3; R40.2362 Coma scale, best motor response, obeys commands, at arrival to emergency department; R40.2142 Coma scale, eyes open, spontaneous, at arrival to emergency department; R40.2242 Coma scale, best verbal response, confused conversation, at arrival to emergency department; G93.0 Cerebral cysts; E11.9 Type 2 diabetes mellitus without complications; I10 Essential (primary) hypertension; E66.9 Obesity, unspecified; R50.9 Fever, unspecified; Z79.84 Long term (current) use of oral hypoglycemic drugs; Z79.82 Long term (current) use of aspirin; Z79.899 Other long term (current) drug therapy; Z68.30 Body mass index [BMI] 30.0-30.9, adult
CPT/HCPCS: 36415; 36416; 70450; 70496; 70553; 71045; 71046; 80048; 80053; 80061; 80306; 81001; 82248; 83605; 85007; 85025; 85027; 86780; 87040; 87070; 87086; 87205; 93306; 93970; 96365; C9113; J0360; J1100; J1630; J1953; J2060; J2405; J2550; J3411; J7042; J7050

== ENCOUNTER 2020-01-04 13:50 | Outpatient (CLI) | payer OTHER ==
[2020-01-04 14:30] LABS: Estimated GFR-MDRD - POC Greater than 90
--- NOTE | 2020-01-04 15:03 | MRI ---
BRAIN MRI WITH AND WITHOUT CONTRAST: HISTORY: Followup intracranial hemorrhage. COMPARISON: 11/11/2019. CORRELATION: Head CT 11/18/2019. FINDINGS: Gradient echo sequence: Residual hemosiderin along the periphery of the previously noted intraparench ymal hematoma along the medial left occipital parietal region. There is mixed signal intensity on the T1 and T2-weighted images suggesting a resolving hematoma. The degree of mass effect upon the lef t cerebrum has decreased. Calvarium: Appropriate T1 marrow signal intensity. Midline brain parenchyma: Unremarkable. Cerebrum:Resolving hematoma in the medial left occipital parietal region measuring 3.1 x 5.2 cm. No a dditional intraparenchymal masses. No midline shift. Basilar cisterns are patent. Brain volume, age-appropriate. Posterior fossa: Stable cavitary lesion in the left midbrain. Ventricles: Stable configuration of the ventricular system. Stable large extraaxial collection in the right posterior fossa with mass effect upon the right cerebellar hemisphere. Findings are most consistent with a large arachnoid cyst. Sinuses and mastoid air cells: Adequate aeration. Diffusion: Central arterial flow is maintained. Absent restricted diffusion. Postcontrast images:There is peripheral enhancement along the a forementioned hematoma. Previously dawson ggested arteriovenous malformation is not appreciated. Slightly prominent draining veins are noted on the left frontal cortex. IMPRESSION: 1. Continued evolutionary changes involving an intraparenchymal hematoma along the left occipital par ietal lobe. 2. Stable hydrocephalus. Stable mass effect upon the fourth ventricle due to a large right-sided arac hnoid cyst causing mass effect and narrowing of the fourth ventricle. Transcribed Date/Time: 01/04/2020 3:15 PM
[2020-01-04] MEDS ORDERED: Magnevist 469MG/ML 20 ML VIAL ONE (16:17)
== END 2020-01-04 13:51 | disposition home or self-care (01) ==
LOC: TBSIIMAG 13:50
PROVIDERS: ATTEND Surgery
DX: S06.359D Traumatic hemorrhage of left cerebrum with loss of consciousness of unspecified duration, subsequent encounter (principal); G93.0 Cerebral cysts; G93.89 Other specified disorders of brain; G91.9 Hydrocephalus, unspecified
CPT/HCPCS: 70553; 82565; A9579

== ENCOUNTER 2020-01-18 06:48 | Day surgery (SDC) | payer OTHER ==
[2020-01-17 11:29] VITALS: BMI 30.3
[2020-01-18] MEDS ORDERED: Heparin 10,000 UNITS/1 ML VIAL ONE (07:00)
[2020-01-18] MEDS ORDERED: Iopamidol 370 76% 50 ML VIAL FS ONE (08:34)
[2020-01-18] MEDS ORDERED: Iopamidol 370 76% 100 ML VIAL ONE (08:34)
[2020-01-18] MEDS ORDERED: Lidocaine 1% (PF) 30 ML VIAL ONE (09:54)
[2020-01-18] MEDS ORDERED: Heparin (Artline) 500 ML ONE (09:54)
--- NOTE | 2020-01-18 19:42 | CCL ---
DATE OF PROCEDURE: 01/18/29 SURGEON: Jabier Bhatt M.D. STRATEGIC PLANNING SPECIALIST: None. INDICATION: History of intracerebral hemorrhage. DIAGNOSIS: History of intracerebral hemorrhage. PROCEDURE: Diagnostic cerebral angiogram. ANESTHESIA: Local. TECHNIQUE: The patient is brought to the angiogram suite and placed on the table in the supine position. Both gr oins were prepped and draped in the usual sterile fashion. 1% lidocaine was used to inject the right groin region. A 5 Indonesian micropuncture set was used to gain access to the right common femoral artery . Using a Seldinger technique, the 5 Indonesian sheath was placed. A 5 Indonesian diagnostic catheter which w as passed over a Bentzen guide wire which was advanced into the aortic arch was used to selectively c atheterize the left internal carotid artery where an AP and lateral angiogram was performed. The cath eter was then placed within the left vertebral artery where an AP and lateral angiogram was performed . All catheters were then removed. Hemostasis was maintained with manual compression. The procedure c carlyn to an end without complication. IMPRESSION: The patient underwent successful two vessel angiography. There is no evidence for early fillin g vein or AVM nidus. There is no evidence for aneurysm. There is no evidence for evidence for abnorm al vasculature responsible for intracerebral hemorrhage.
== END 2020-01-18 14:15 | disposition home or self-care (01) ==
LOC: CCL 06:48
PROVIDERS: ATTEND Neurological Surgery
PROC: 04HK3DZ Insertion of Intraluminal Device into Right Femoral Artery, Percutaneous Approach (ICD-10-PCS; principal; 2020-01-18)
DX: I61.9 Nontraumatic intracerebral hemorrhage, unspecified (principal); G93.0 Cerebral cysts; G93.89 Other specified disorders of brain
CPT/HCPCS: 36226; J1644; J2001; Q9967